=== PATIENT | female | born 1955 | race African-American/Black ===

== ENCOUNTER 2020-01-04 13:49 | Inpatient (IN) | payer MEDICARE, SELFPAY ==
[2020-01-04] VITALS (9 sets, daily range): BP systolic 137–168; BP diastolic 89–101; PULSE 67–90; RESP 11–20; TEMP 36.1–36.4; O2SAT 96–100; BMI 27.6
--- NOTE | ~2020-01-04 | XR_ITS ---
XR chest 1V portable DATE: 01/04/2020 14:22 INDICATION: Chest pain TECHNIQUE: Portable upright AP chest on 01/14/2020 at 1419 hours COMPARISON: 08/09/2017 PA and lateral chest FINDINGS: Normal heart size. There is aortic calcification and mild tortuosity. No hilar or mediastin al enlargement. No pulmonary infiltrate or consolidation, pleural effusion or pulmonary vascular congestion or pneumo thorax. IMPRESSION: No active cardiopulmonary disease Aortic atherosclerosis Reviewed, dictated and finalized at location A.
--- NOTE | ~2020-01-04 | US_ITS ---
US right upper quadrant INDICATION: Abdominal pain PROCEDURE: Realtime right upper abdominal ultrasound. COMPARISON: Ultrasound dated 06/28/2011 FINDINGS: The pancreas is normal without focal mass or pancreatic ductal dilation. Liver echotexture is increased, consistent with fatty infiltration. There is hepatomegaly. There is normal directiona l flow in the portal vein. The gallbladder is normal without stones, gallbladder wall thickening or pericholecystic fluid. Comm on bile duct measures 4.6 mm. No sonographic Cross's sign. IMPRESSION: 1: Fatty infiltration of the liver with hepatomegaly. Reviewed, dictated and finalized at location A.
[2020-01-04 14:00] LABS: Glucose Point of Care 376 (65-105)
[2020-01-04 14:42] LABS: Basophils Percent Auto 0.3 % (0.2-1.2); Eosinophils Percent Auto 0.2 % (0-4.4); Hemoglobin 15.2 g/dL (12.0-15.0); Immature Granulocyte Absolute 0.04 K/mm3 (0.00-0.031); Immature Granulocyte Percent A 0.4 % (0-0.5); Lymphocytes Absolute Auto 0.96 K/mm3 (0.9-3.2); Lymphocytes Percent Auto 10.6 % (18.3-44.2); Mean Corpuscular HGB Conc 31.7 g/dl (32-36); Mean Corpuscular Hemoglobin 26.3 pg (26-34); Mean Platelet Volume 11.5 fl (7.4-10.4); Monocytes Absolute Auto 0.3 K/mm3 (0.1-0.6); Monocytes Percent Auto 3.8 % (2.6-8.5); Neutrophils Absolute Auto 7.7 K/mm3 (1.3-6.7); Neutrophils Percent Auto 84.7 % (45.5-73.1); Platelet Count Result 189 k/mm3 (150-375); Red Blood Count 5.78 M/mm3 (4.2-5.4); White Blood Count 9.1 K/mm3 (4.5-10.0)
[2020-01-04 14:54] LABS: Alanine Aminotransferase 133 U/L (4-35); Albumin Level 4.2 g/dL (3.5-5.1); Alkaline Phosphatase 132 U/L (38-126); Aspartate Amino Transferase 158 U/L (14-36); Blood Urea Nitrogen 13 mg/dL (7-17); Calcium 8.9 mg/dL (8.4-10.2); Carbon Dioxide 26 mmol/L (22-30); Chloride 99 mmol/L (98-107); Estimated CRCL calculation 67 ml/min; Estimated Glomerular Filt Rate > 60; Glucose 374 mg/dL (65-105); Potassium 3.6 mmol/L (3.4-5.0); Sodium 137 mmol/L (137-145)
[2020-01-04 14:55] LABS: INR 0.9; Partial Thromboplastin Time 24.8 SECONDS (22.3-36.8); Prothrombin Time 12.3 Seconds (11.1-14.7)
[2020-01-04 14:58] LABS: D Dimer 0.45 ug/mL (<0.48)
[2020-01-04] MEDS: SODIUM CHLORIDE 0.9% IV 1,000 ML 999 ML IV CONT ×2 (15:04→15:28)
[2020-01-04 15:05] LABS: Troponin I < 0.012 ng/mL (0.000-0.034)
[2020-01-04 15:05] LABS: Add Urine Microscopic? YES; Appearance Urine Clear (Clear); Bacteria Urine Trace /hpf; Bilirubin Urine Negative (Negative); Blood Urine Negative (Negative); Color Urine Colorless (Yellow); Glucose Urine UA 3+ mg/dL (Negative); Ketones Urine 1+ mg/dL (Negative); Leukocyte Esterase Ur Negative LEU/UL (Negative); Nitrate Urine Negative (Negative); Protein Urine 1+ mg/dL (Negative); RBC Urine 0-2 /hpf (0-2); Specific Grav Ur 1.012 (1.001-1.035); Squamous Epithelial Cell Urine Occasional /hpf (Few); Urobilinogen Urine Negative mg/dL (<2.0); WBC Urine 0-3 /hpf
[2020-01-04 15:17] LABS: Amphetamine Screen Urine Negative (Negative); Barbiturate Screen Urine Negative (Negative); Benzodiazepines Screen Urine Negative (Negative); Cannabinoid Screen Urine Negative (Negative); Cocaine Screen Urine Negative (Negative); Methadone Screen Urine Negative (Negative); Opiate Screen Urine Negative (Negative); Phencyclidine Screen Urine Negative (Negative)
[2020-01-04] MEDS: FAMOTIDINE 20 MG/2 ML VIAL IV PUSH (15:27)
[2020-01-04] MEDS: INSULIN HUMAN REGULAR (*BKC) 100 UNITS/ML 9 UNITS SUB-Q (15:27)
[2020-01-04] MEDS: ONDANSETRON INJ 4 MG/2 ML VIAL IV PUSH (15:28)
--- NOTE | 2020-01-04 15:40 | ED.ARRPALP ---
HPI - Arrhythmia/Palpitations General Chief Complaint: Arrhythmia/Palpitations <RODRIGO Panchal Last Filed: 01/04/20 16:43> Stated Complaint: SVT, resolved <RODRIGO Panchal Last Filed: 01/04/20 16:43> Time Seen by Provider: 01/04/20 14:08 <RODRIGO Pnachal Last Filed: 01/04/20 16:43> Source: patient <RODRIGO Panchal Last Filed: 01/04/20 16:43> Mode of arrival: ambulatory <RODRIGO Panchal Last Filed: 01/04/20 16:43> Limitations: no limitations <RODRIGO Panchal Filed: 01/04/20 16:43> History of Present Illness HPI narrative: Patient is a 64-year-old female who presents to emergency department for evaluation of mid chest discomfort with feeling diaphoretic and sweats with nausea and vomiting that occurred this morning EMS was called out patient was found to be in SVT was given 2 doses of adenosine with conversion. On arrival to emergency department patient had aspirin noting only mild discomfort in the mid chest. Patient notes she continues to have some nausea. Patient notes that she has not had a similar occurrence in the past patient notes in the recent past she has felt fine denying any illness or other complaints <RODRIGO Panchal Last Filed: 01/04/20 16:43> Related Data Home Medications: Home Medications Medication Instructions Recorded Confirmed atenolol 25 mg PO DAILY 01/04/20 01/04/20 atorvastatin 40 mg PO HS 01/04/20 01/04/20 lisinopril-hydrochlorothiazide 1 tablet PO DAILY 01/04/20 01/04/20 lorazepam [Ativan] 0.5 mg PO TID PRN 01/04/20 01/04/20 metformin 1,000 mg PO DAILY 01/04/20 01/04/20 omeprazole 40 mg PO DAILY 01/04/20 01/04/20 pioglitazone [Actos] 15 mg PO DAILY 01/04/20 01/04/20 <RODRIGO Panchal Last Filed: 01/04/20 16:43> Allergies/Adverse Reactions: Allergies Allergy/AdvReac Type Severity Reaction Status Date / Time No Known Allergies Allergy Unknown Unverified 01/04/20 14:00 <Seng Tobin PA-C - Last Filed: 01/04/20 16:43> Review of Systems Review of Systems: All systems reviewed & are unremarkable except as noted in HPI and below <Seng Tobin PA-C - Last Filed: 01/04/20 16:43> PMFSH Past Medical History Medical History: Medical History (Updated 01/04/20 @ 16:43 by Seng Tobin PA-C) Diabetes mellitus Hyperlipidemia Hypertension Obesity <Seng Tobin PA-C - Last Filed: 01/04/20 16:43> Surgical History Surgical History: Surgical History H/O cardiac catheterization <Seng Tobin PA-C - Last Filed: 01/04/20 16:43> Family History Family History: Family History (Updated 01/04/20 @ 18:36 by Dominga Figueroa RN) Father Acute myocardial infarction Cerebrovascular accident Hypertension Mother Kidney disease Diabetes mellitus <Seng Tobin PA-C - Last Filed: 01/04/20 16:43> Social History Social History: Social History (Updated 01/04/20 @ 15:42 by Seng Tobin PA-C) Smoking packs per day: 0.25 Smoking cigarettes per day: 5.0 Years smoked: 30 Smoking pack-years: 7.50 Smoking status: Former smoker Tobacco type: e-cigarettes/vaping Second hand tobacco smoke exposure: Yes Alcohol intake: never Substance use: never Gender identity (if verbalized by the patient): Female Spiritual care concerns: No <Seng Tobin PA-C - Last Filed: 01/04/20 16:43> Exam Narrative: Exam Narrative: GENERAL: Well-appearing, well-nourished, and in no acute distress. HEAD: Normocephalic, atraumatic. EYES: PERRLA and EOMI. ENT: Nares clear, no rhinorrhea or epistaxis. Mucous membranes moist. Oropharynx without tonsillar hypertrophy exudate or other lesions. NECK: Supple. No adenopathy or masses. CHEST: Clear to auscultation. No respiratory distress. No wheezes rales or rhonchi HEART: Regular rate and rhythm. No murmur heard. No
[2020-01-04 17:54] LABS: Troponin I 0.095 ng/mL (0.000-0.034)
--- NOTE | 2020-01-04 18:07 | ADMGEN ---
This patient, Zoila Almaraz, was admitted to IMU Room 205-01 on 01-04-2020 at 1755. Patient/family oriented to hospital policies and general routines including ID bracelet, bed and alarms, visiting hours, pain management, procedures, bathroom and other care routines, personal items, smoking policy, room service/diet, and visiting hours. Valuables list has been completed. Information on how to activate the Rapid Response Team has been discussed. Patient/Family are encouraged to report perceived risks to care and to ask questions if they do not understand what they are told or what they should do.
[2020-01-04 18:12] LABS: Glucose Point of Care 196 (65-105)
[2020-01-04] MEDS: LACTATED RINGERS 1,000 ML 125 ML IV CONT (18:38)
--- NOTE | 2020-01-04 20:17 | PM.IMHP ---
H&P: HPI History of Present Illness Chief complaint: SVT,CHEST PIN,ABDOMINAL PAIN Narrative: Zoila Almaraz is a 64 year old female who states that she has had a myocardial infarction in the past but has not had any cardiac stents. The patient stated that she has been working double shifts and [facility] all month long. She is only getting 3-4 hours of sleep a day and not eating right. She states that she has been taking her medication as prescribed. She states that she is very stressed out recently. 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 She stated that she has paroxysmal AFib in the past but is not on any anticoagulation. She stated she has had 2 stress tests in the past and they were negative. She said she has had 2 cardiac catheterization and those were negative as well. She does not recall when she had her last echo. The patient stated that she has not had SVT in the past. She said she has had some chest pain at other times but is resolved on his own. Today she said that she woke up and was having some chest pain palpitations. She said she was in so much pain that she could not talk and felt like she could hardly breathe. She was very diaphoretic. She said her pain was midsternal and did not radiate down her arms or up into her neck. Patient received 2 doses of adenosine in the emergency room. A and she converted to sinus rhythm. Patient was also given lactated Ringer's. Zofran for the nausea. She is also given Tylenol. She is currently eating and is pain-free. Her 1st troponin was noted to be 0.012. Second troponin was noted to be 0.095. To have a fatty infiltration of the liver with hepatomegaly. Chest x-ray read as no acute cardiopulmonary disease. Aortic atherosclerosis. Telemetry is now showing a sinus rhythm with PVCs. Blood sugar was initially 376 and was given insulin in the emergency room. Her blood sugars now down to 196. Date of service 01/04/2020 3rd troponin 0.174. Cardiology was consulted in the emergency room. Review of Systems Review of Systems: All systems reviewed & are unremarkable except as noted in HPI and below Constitutional: Constitutional: Reports as per HPI and Reports no additional constitutional complaints Eyes: Eyes: Reports as per HPI and Reports no additional eye complaints ENT: Reports system reviewed and no additional complaints, except as documented and Reports Normal hearing present Cardiovascular: Cardiovascular: Reports no additional cardiovascular complaints Respiratory: Respiratory: Reports no additional respiratory complaints and Reports no additional respiratory complaints Gastrointestinal: Gastrointestinal: Reports as per HPI and Reports no additional gastrointestinal complaints Musculoskeletal: Musculoskeletal: Reports no additional musculoskeletal complaints Integumentary/Breasts: Skin/Breast: Reports system reviewed and no additional complaints, except as docu and Reports as per HPI Neurologic: Reports system reviewed and no additional complaints, except as documented, Reports as per HPI and Reports Normal hearing present Psychiatric: Psychiatric: Reports no additional psychiatric complaints and Reports as per HPI Endocrine: Endocrine: Reports no additional endocrine complaints Hematologic/Lymphatic: Hematologic/Lymphatic: Reports no additional hematologic/lymphatic complaints Allergic/Immunologic: Allergic/Immunologic: Reports no additional allergic/immunologic complaints [facility] Past Medical History Medical History (Updated 01/04/20 @ 20:43 by Kassidy Torres NP) Anxiety Atrial fibrillation 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
[2020-01-04 20:30] LABS: Troponin I 0.174 ng/mL (0.000-0.034)
[2020-01-04] MEDS: ATORVASTATIN 40 MG TABLET PO (21:10)
[2020-01-04] MEDS: LORAZEPAM 0.5 MG TABLET PO (21:20)
[2020-01-04 23:22] LABS: Amphetamine Screen Urine Negative (Negative); Barbiturate Screen Urine Negative (Negative); Benzodiazepines Screen Urine Negative (Negative); Cannabinoid Screen Urine Negative (Negative); Cocaine Screen Urine Negative (Negative); Methadone Screen Urine Negative (Negative); Opiate Screen Urine Negative (Negative); Phencyclidine Screen Urine Negative (Negative)
[2020-01-05] VITALS (17 sets, daily range): BP systolic 129–180; BP diastolic 73–103; PULSE 63–92; RESP 16–20; TEMP 35.7–36.6; O2SAT 98–100
[2020-01-05 00:09] LABS: Glucose Point of Care 319 (65-105)
[2020-01-05 05:33] LABS: Basophils Percent Auto 0.4 % (0.2-1.2); Eosinophils Percent Auto 0.6 % (0-4.4); Hemoglobin 13.4 g/dL (12.0-15.0); Immature Granulocyte Absolute 0.04 K/mm3 (0.00-0.031); Immature Granulocyte Percent A 0.6 % (0-0.5); Lymphocytes Absolute Auto 2.05 K/mm3 (0.9-3.2); Lymphocytes Percent Auto 29.6 % (18.3-44.2); Mean Corpuscular HGB Conc 31.9 g/dl (32-36); Mean Corpuscular Hemoglobin 26.5 pg (26-34); Mean Platelet Volume 11.4 fl (7.4-10.4); Monocytes Absolute Auto 0.4 K/mm3 (0.1-0.6); Monocytes Percent Auto 6.2 % (2.6-8.5); Neutrophils Absolute Auto 4.3 K/mm3 (1.3-6.7); Neutrophils Percent Auto 62.6 % (45.5-73.1); Platelet Count Result 175 k/mm3 (150-375); Red Blood Count 5.06 M/mm3 (4.2-5.4); Red Cell Distribution Width 14.2 % (11.5-14.5); White Blood Count 6.9 K/mm3 (4.5-10.0)
[2020-01-05 05:40] LABS: Alanine Aminotransferase 100 U/L (4-35); Albumin Level 3.7 g/dL (3.5-5.1); Alkaline Phosphatase 101 U/L (38-126); Aspartate Amino Transferase 76 U/L (14-36); Bilirubin,Total 0.5 mg/dL (0.2-1.3); Blood Urea Nitrogen 9 mg/dL (7-17); Calcium 8.7 mg/dL (8.4-10.2); Carbon Dioxide 30 mmol/L (22-30); Chloride 103 mmol/L (98-107); Estimated CRCL calculation 87 ml/min; Estimated Glomerular Filt Rate > 60; Glucose 251 mg/dL (65-105); Lipase 356 U/L (23-300); Potassium 3.6 mmol/L (3.4-5.0); Sodium 137 mmol/L (137-145)
[2020-01-05 05:53] LABS: Hemoglobin A1C 12.6 % (<5.7)
[2020-01-05 06:08] LABS: Troponin I 0.086 ng/mL (0.000-0.034)
[2020-01-05] MEDS: INSULIN ASPART (*BKC) 100 UNITS/ML SUB-Q ×3 (08:15→17:17)
[2020-01-05] MEDS: atenoloL 25 MG TABLET PO ×2 (08:16→13:09)
[2020-01-05] MEDS: ENOXAPARIN 40 MG/0.4 ML SYRINGE SUB-Q (08:16)
[2020-01-05] MEDS: PANTOPRAZOLE 40 MG TABLET PO (08:17)
[2020-01-05] MEDS: lisinopriL 10 MG TABLET PO (08:17)
[2020-01-05] MEDS: PIOGLITAZONE HCL 15 MG TAB PO (08:17)
[2020-01-05] MEDS: FAMOTIDINE 20 MG/2 ML VIAL IV PUSH ×2 (08:17→20:44)
[2020-01-05] MEDS: hydroCHLOROthiazide 12.5 MG CAPSULE PO (08:17)
[2020-01-05] MEDS: GUAIFENESIN/DEXTROMETHORPHAN 10 ML UDC 5 ML PO ×3 (08:21→22:44)
[2020-01-05 08:25] LABS: Glucose Point of Care 245 (65-105)
--- NOTE | 2020-01-05 11:51 | WPDCN ---
Assessment and Plan Assessment and plan (1) Supraventricular tachycardia: Code(s): I47.1 - Supraventricular tachycardia Status: Acute Assessment and Plan: Patient admitted with SVT rate 190, presyncope and chest pain. She has elevated troponins. No coronary disease by catheterization in 2010, although since she spilled enzymes at that time there was a question of coronary spasm. She has not had any chest pain for years and has good exertional tolerance so I doubt she has significant underlying CAD. 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 Recommend we treat the SVT by increasing her atenolol from 25 mg to 50 mg daily. Check TSH. I think the patient would benefit from further outpatient evaluation with an echocardiogram. She no longer sees her previous moccasin sewer at [facility] and she would prefer to have it done in [place] so I can schedule an outpatient echo in our office in the near future. Probably discharge tomorrow. (2) Chest pain: Code(s): R07.9 - Chest pain, unspecified Status: Acute Assessment and Plan: Secondary to SVT, resolved (3) Elevated troponin: Code(s): R79.89 - Other specified abnormal findings of blood chemistry Status: Acute Assessment and Plan: Secondary to SVT, resolved HPI Data of Consult Date/Time: 01/05/20 11:51 Requesting Physician: Ronald Cruz MD Primary Care Provider: Cecilio MedranoMD Consult Narrative Narrative: Date of service: 01/05/2020 Zoila Almaraz is a 64 year old female kindly referred by Dr. marisel cerna for bite vice and opinion regarding her chest pain, SVT and elevated troponins in consultation. 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 She was finally getting a day off yesterday and slept until about 12 30 when she awoke with profuse diaphoresis and indigestion. The chest discomfort worsened to a deep pressure-like 2 fists pushing down in the substernal area and epigastric area. She felt dizzy and presyncopal. She did not really feel any palpitations. EMS report reviewed, was in SVT rate 192 with a systolic blood pressure of 90 mmHg. She received adenosine 6 mg and 12 mg IV push and converted to sinus rhythm and has subsequently been admitted. Unfortunately I cannot find any rhythm strips in EMR or the chart. Repeat troponin is 0.174. She is feeling a bit tired, has a mild cough, but no other problems today. She states she was tested for COVID recently and the screen was negative. The patient gives a history of having a stroke, seizure and heart attack at the same time 9 or 10 years ago at [facility], manifest as a syncopal episode. Her cardiac catheterization then, she reports, showed no blockages. Dr. Jose Parikh was her moccasin sewer. She was admitted to [facility] in 2010 with chest pain and a troponin of 0.138 with biphasic anterior T-waves. Repeat cardiac catheterization by Dr. Crowe again showed no coronary arteries but she did have a small dyskinetic segment inferiorly so there was concern she may have had coronary spasm. She carries a history of paroxysmal atrial fibrillation when she is stressed or upset with the last episode being 5 years ago. She has not required any hospitalizations or anticoagulation but previously was treated with Cardizem. She followed up with her moccasin sewer for few years and, with stable clinical course and normal stress tests and echos, was eventually discharged. The patient has history of hypertension, diabetes, hyperlipidemia and is a former smoker, now vaping. She reports no problems with any exertional chest pain or shortness of breath. No recent
[2020-01-05 12:42] LABS: Glucose Point of Care 306 (65-105)
[2020-01-05] MEDS: LORAZEPAM 0.5 MG TABLET PO ×2 (13:26→22:44)
--- NOTE | 2020-01-05 13:28 | ECG_ITS ---
Measurements Intervals [place] Rate: 65 P: 42 NM: 150 QRS: 5 QRSD: 90 T: 20 QT: 419 QTc: 437 Interpretive Statements SINUS RHYTHM EARLY PRECORDIAL R/S TRANSITION BASELINE ARTIFACT- I, II, AVR, AVL BORDERLINE ECG Electronically Signed On 01-05-2020 14:52:37 CDT by Jose Spears D.O.
--- NOTE | 2020-01-05 13:56 | PM.IMPN ---
Progress Note: A&P Assessment and Plan (1) Supraventricular tachycardia: Code(s): I47.1 - Supraventricular tachycardia Status: Acute Assessment and Plan: The patient had been given adenosine x2 and is now converted back to sinus rhythm with occasional PVCs. Pt is stable but is very anxious. Continue to monitor on telemtry overnite, discharge tomorrow. (2) Chest pain: Code(s): R07.9 - Chest pain, unspecified Status: Acute Assessment and Plan: Her 3rd troponin was elevated pt had bout of SVT converted to NSR. Chest pain ? MS or mild congestion Try mucinex (3) Diabetes mellitus: Code(s): E11.9 - Type 2 diabetes mellitus without complications Status: Chronic Assessment and Plan: Will check A1c. Sliding scale insulin. Hold her metformin. Continue with her Actos. (4) Anxiety: Code(s): F41.9 - Anxiety disorder, unspecified Status: Chronic Assessment and Plan: Continue with her Ativan. (5) Elevated liver enzymes: Code(s): R74.8 - Abnormal levels of other serum enzymes Status: Acute Assessment and Plan: Could be related to her fatty liver. (6) Hypertension: Code(s): I10 - Essential (primary) hypertension Status: Chronic Assessment and Plan: Continue with her atenolol and lisinopril with hydrochlorothiazide. Subjective Date/time seen: 01/05/20 13:56 Interval history: 64 year old female who states that she has had a myocardial infarction in the past but has not had any cardiac stents. The patient stated that she has been working double shifts and [facility] all month long. Pt has a wet cough was tested negative for COVID. Pt still very anxious. Pt admitted with SVT pt is back to NSR. Reassurance she is better. Pt would like to see email specialist and stay today. Review of Systems Review of Systems: All systems reviewed & are unremarkable except as noted in HPI and below Cardiovascular: Cardiovascular: Reports no additional cardiovascular complaints Respiratory: Respiratory: Reports chest congestion, Reports cough, Reports excessive phlegm production, Denies dyspnea and Denies wheezing Musculoskeletal: Comments: chest wall discomfort Psychiatric: Psychiatric: Reports anxiety Exam Const: General: cooperative and healthy appearing; No in distress Nutritional Appearance: overweight Orientation/consciousness: oriented to person Resp: Effort & Inspection: no respiratory distress Auscultation: no rhonchi and no wheezes Cardio: Rate: regular rate Rhythm: regular rhythm GI: Inspection: normal to inspection GI Palp: No abdominal tenderness, No Guarding due to palpation present (GI) and No Hepatomegaly present Auscultation: normal bowel sounds Neuro: General: oriented to person Psych: Other: Anxiety Objective Data Vital Signs Vital Signs: Vital Signs - 24 hr 01/04/20 15:07 01/04/20 15:31 01/04/20 16:01 Temperature Pulse Rate 90 74 80 Respiratory Rate 15 16 18 Blood Pressure 168/97 H 167/95 H 162/101 H Pulse Oximetry 01/04/20 18:00 01/04/20 18:32 01/04/20 20:00 Temperature 36.3 C L 36.1 C L Pulse Rate 75 74 85 Respiratory Rate 16 18 Blood Pressure 162/96 H 165/92 H Pulse Oximetry 100 100 01/04/20 22:00 01/04/20 23:58 01/05/20 00:00 Temperature 36.3 C L Pulse Rate 67 89 82 Respiratory Rate 20 20 Blood Pressure 155/89 H Pulse Oximetry 99 99 01/05/20 01:53 01/05/20 04:00 01/05/20 06:00 Temperature 36.0 C L Pulse Rate 85 76 77 Respiratory Rate 20 Blood Pressure 157/94 H Pulse Oximetry 99 01/05/20 07:56 01/05/20 08:00 01/05/20 08:16 Temperature 35.9 C L Pulse Rate 77 87 81 Respiratory Rate 16 Blood Pressure 180/103 H Pulse Oximetry 98 01/05/20 09:18 01/05/20 10:00 01/05/20 11:57 Temperature 35.8 C L Pulse Rate 71 67 Respiratory Rate 20 Blood Pressure 152/94 H 129/75 Pulse Oximetry 100 01/05/20
[2020-01-05 17:01] LABS: Glucose Point of Care 293 (65-105)
--- NOTE | 2020-01-05 18:53 | PC.NURSE ---
Transfer received from IMU room 205-1.
[2020-01-05] MEDS: ATORVASTATIN 40 MG TABLET PO (20:44)
[2020-01-05 21:44] LABS: Glucose Point of Care 283 (65-105)
[2020-01-05] MEDS: ONDANSETRON INJ 4 MG/2 ML VIAL IV PUSH (22:44)
[2020-01-06] VITALS: PULSE 77
[2020-01-06 04:00] VITALS: PULSE 76
[2020-01-06 04:57] VITALS: BP 155/81; PULSE 80; RESP 16; TEMP 35.9; O2SAT 100
[2020-01-06] MEDS: GUAIFENESIN/DEXTROMETHORPHAN 10 ML UDC 5 ML PO (04:58)
[2020-01-06 07:43] LABS: Glucose Point of Care 267 (65-105)
[2020-01-06 08:00] VITALS: BP 140/72; PULSE 68; PULSE 81; RESP 18; TEMP 36.8; O2SAT 100
[2020-01-06] MEDS: INSULIN ASPART (*BKC) 100 UNITS/ML SUB-Q ×2 (08:04→11:44)
[2020-01-06 08:08] VITALS: PULSE 76
[2020-01-06] MEDS: PANTOPRAZOLE 40 MG TABLET PO (08:08)
[2020-01-06] MEDS: atenoloL 50 MG TABLET PO (08:08)
[2020-01-06] MEDS: lisinopriL 10 MG TABLET PO (08:08)
[2020-01-06] MEDS: PIOGLITAZONE HCL 15 MG TAB PO (08:08)
[2020-01-06] MEDS: hydroCHLOROthiazide 12.5 MG CAPSULE PO (08:08)
[2020-01-06] MEDS: FAMOTIDINE 20 MG/2 ML VIAL IV PUSH (08:09)
[2020-01-06] MEDS: ENOXAPARIN 40 MG/0.4 ML SYRINGE SUB-Q (08:09)
[2020-01-06 11:52] LABS: Glucose Point of Care 299 (65-105)
[2020-01-06 12:00] VITALS: PULSE 72
--- NOTE | 2020-01-06 12:16 | PM.DS ---
DS: Diagnosis Admitting Diagnosis Admitting Diagnosis: Supraventricular tachycardia Discharge Diagnosis (1) Supraventricular tachycardia: Code(s): I47.1 - Supraventricular tachycardia Status: Acute Assessment and Plan: The patient had been given adenosine x2 and is now converted back to sinus rhythm with occasional PVCs. Pt is stable but is very anxious. Continue to monitor on telemetry. Dischrage today. (2) Chest pain: Code(s): R07.9 - Chest pain, unspecified Status: Acute Assessment and Plan: Her 3rd troponin was elevated pt had bout of SVT converted to NSR. Chest pain ? MS or mild congestion Try robutissin (3) Diabetes mellitus: Code(s): E11.9 - Type 2 diabetes mellitus without complications Status: Chronic Assessment and Plan: Continue back on her home DM medications. Pts HbAIC is 12.6 (4) Anxiety: Code(s): F41.9 - Anxiety disorder, unspecified Status: Chronic Assessment and Plan: Continue ativan PRN for chronic anxiety (5) Elevated liver enzymes: Code(s): R74.8 - Abnormal levels of other serum enzymes Status: Acute Assessment and Plan: Could be related to her fatty liver. (6) Hypertension: Code(s): I10 - Essential (primary) hypertension Status: Chronic Assessment and Plan: Continue with her atenolol and lisinopril with hydrochlorothiazide. DS: Summary Time Spent with Patient Time attestation: Total time spent providing and/or coordinating discharge services:38 minutes on day of discharge Exam Const: General: cooperative, healthy appearing, comfortable, no acute distress, well developed, awake and Physically active; No in distress Nutritional Appearance: average body habitus, well nourished and overweight Orientation/consciousness: oriented to person, oriented to place, oriented to time and patient oriented x3 Limitations: no limitations Chest: Chest palpation & inspection: normal inspection of the chest Resp: Effort & Inspection: normal respiratory effort and no respiratory distress Auscultation: clear to auscultation bilaterally, no rhonchi and no wheezes Percussion: percussion normal Cardio: Palpation: normal PMI Rate: regular rate Rhythm: regular rhythm Heart sounds: S1 normal heart sound present and S2 normal heart sound present Peripheral pulses: Peripheral pulses 2+ throughout Psych: Appearance: grossly normal Mental Status: mental status grossly normal Speech and movement: Normal speech and movement present Affect: normal affect Attitude: cooperative Thought process: Normal thought process present Insight: Fair insight present (Psych) Judgement: Fair judgement present (Psych) Other: Anxiety DS: Data Data Completed and Pending Labs on day of discharge: Labs from last 24 hours 01/06/20 01/06/20 01/06/20 11:42 07:39 05:20 POC Capillary Glucose 299 H 267 H TSH 1.320 01/05/20 01/05/20 01/05/20 19:27 16:38 11:56 POC Capillary Glucose 283 H 293 H 306 H TSH Discharge Plan Discharge Attending physician on discharge: Carla Aguero Consulting providers: Julia Martino Discharging Clinician: Carla Aguero Anticipated Discharge Date/Time: 01/06/20 12:12 Patient Disposition: Home, Self-Care Activity: as tolerated Diet: diabetic Discharge Instructions: ECHO ON DISCHARGE PT CAN START COMING TO [facility] GROUP HERE IN [facility] Patient Instructions: Antibiotic Form Stand Alone Forms: General Discharge Information Follow-up/Referrals: Mitchell,Cecilio Sifuentes MD [Primary Care Provider] - Discharge Medications: New Robitussin Cough-Chest Hola DM 5-100 mg/5 mL liquid 10 ml PO Q4-8H PRN (Reason: cough) Qty: 118 RF: 0 Continued atorvastatin 40 mg Tablet 40 mg PO HS RF: 0 lisinopril-hydrochlorothiazide 10-12.5 mg Tablet 1 tablet PO DAILY RF: 0 metformin 500 mg Tablet Extended Release
== END 2020-01-06 13:08 | disposition home or self-care (01) | DRG 310 ==
LOC: ANHED 16:55 → ANHIMU 17:04 → ANH3MED 01-06 12:16 → ANHIMU 01-09 13:36
PROVIDERS: Emergency Medicine Emergency Medical Services; Internal Medicine Cardiovascular Disease; Nurse Practitioner; Admitting Provider Internal Medicine; Emergency Provider Emergency Medicine; PCP Internal Medicine; Visit Provider Family Medicine
DX: I47.1 Supraventricular tachycardia (principal); E11.9 Type 2 diabetes mellitus without complications; F41.9 Anxiety disorder, unspecified; R74.8 Abnormal levels of other serum enzymes; I10 Essential (primary) hypertension; E78.5 Hyperlipidemia, unspecified; K21.9 Gastro-esophageal reflux disease without esophagitis; F17.290 Nicotine dependence, other tobacco product, uncomplicated; Z86.73 Personal history of transient ischemic attack (TIA), and cerebral infarction without residual deficits; I25.2 Old myocardial infarction; Z90.710 Acquired absence of both cervix and uterus
CPT/HCPCS: 36415; 71045; 76705; 80053; 80307; 81001; 82948; 83036; 83690; 84443; 84484; 85025; 85380; 85610; 85730; 93005; 96361; 96365; 96375; 99285; A9270; J0131; J1650; J1815; J2405; J7030; J7120

== ENCOUNTER 2020-01-10 22:43 | Inpatient (IN) | payer MEDICARE, SELFPAY ==
--- NOTE | ~2020-01-10 | XR_ITS ---
EXAMINATION: XR chest 1V portable DATE: 01/18/2020 05:55 INDICATION: COVID pneumonia TECHNIQUE: frontal view of the chest was obtained. COMPARISON: Chest radiograph dated 01/18/2020 and 06/27/2011 FINDINGS: Chronic elevation of the left hemidiaphragm. Mild patchy airspace opacities in the left mid to lower lung zone with more subtle patchy opacities in the right upper and lower lung zones. No pleural effus ion or pneumothorax. The cardiomediastinal silhouette is normal. IMPRESSION: 1. Subtle patchy bilateral airspace opacities most likely pneumonia. Reviewed, dictated and finalized at location A.
--- NOTE | ~2020-01-10 | CT_ITS ---
EXAMINATION: CTA chest PE protocol DATE: 01/11/2020 04:48 INDICATION: Chest pain. Shortness of breath. TECHNIQUE: Computed tomography angiography (CTA) of the chest was performed with 100 mL Omnipaque-350 intravenous contrast timed to evaluate the pulmonary arteries. Coronal maximum intensity projection 3D-reconstructions were created by the technologist. Automated exposure control and iterative reconst ruction technique were employed. The dose-length product was 214.24 mGy-cm. COMPARISON: Chest single view 01/04/2020, CT abdomen and pelvis 08/09/2017 FINDINGS: There are blebs in right lung apex. There is mild atelectasis bilaterally. There are periph eral groundglass and airspace opacities in left lower lobe. No pleural effusion. The heart size is no rmal. No pericardial effusion. There is no pulmonary embolus. There is mild thoracic spondylosis. IMPRESSION: 1. No pulmonary embolus. 2. Groundglass and airspace opacities in left lower lobe, consistent with pneumonia such as COVID-19 pneumonia. Reviewed, dictated and finalized at location A. IMPRESSION: 1. No pulmonary embolus. 2. Groundglass and airspace opacities in left lower lobe, consistent with pneum onia such as COVID-19 pneumonia.
[2020-01-10 22:46] VITALS: BP 108/68; PULSE 86; RESP 13; TEMP 38.3; O2SAT 100
--- NOTE | 2020-01-10 23:14 | ECG_ITS ---
Measurements Intervals [place] Rate: 84 P: 32 ME: 139 QRS: -6 QRSD: 87 T: 72 QT: 368 QTc: 435 Interpretive Statements SINUS RHYTHM ATRIAL AND VENTRICULAR PREMATURE COMPLEXES NONSPECIFIC ST & T-WAVE ABNORMALITY- ANTERIOR LEADS BASELINE WANDER- I, II, AVR, AVL, AVF, V4-V6 ABNORMAL ECG Electronically Signed On 01-11-2020 7:12:39 CDT by Jose Spears D.O.
[2020-01-11] VITALS (14 sets, daily range): BP systolic 102–119; BP diastolic 65–80; PULSE 62–91; RESP 15–20; TEMP 36.9–38; O2SAT 93–100; BMI 23.1
[2020-01-11] MEDS: MORPHINE SULFATE 4 MG/ML INJ IV PUSH
[2020-01-11 00:30] LABS: Basophils Percent Auto 0.3 % (0.2-1.2); Hemoglobin 14.9 g/dL (12.0-15.0); Immature Granulocyte Absolute 0.02 K/mm3 (0.00-0.031); Immature Granulocyte Percent A 0.3 % (0-0.5); Lymphocytes Absolute Auto 1.38 K/mm3 (0.9-3.2); Lymphocytes Percent Auto 21.7 % (18.3-44.2); Mean Corpuscular HGB Conc 33.1 g/dl (32-36); Mean Corpuscular Hemoglobin 26.7 pg (26-34); Mean Corpuscular Volume 80.6 fl (80-100); Mean Platelet Volume 11.5 fl (7.4-10.4); Monocytes Absolute Auto 0.4 K/mm3 (0.1-0.6); Monocytes Percent Auto 5.8 % (2.6-8.5); Neutrophils Absolute Auto 4.6 K/mm3 (1.3-6.7); Neutrophils Percent Auto 71.9 % (45.5-73.1); Platelet Count Result 151 k/mm3 (150-375); Red Blood Count 5.58 M/mm3 (4.2-5.4); Red Cell Distribution Width 13.7 % (11.5-14.5); White Blood Count 6.4 K/mm3 (4.5-10.0)
[2020-01-11 00:33] LABS: Lactic Acid Reflex 1.3 mmol/L (0.7-2.1)
--- NOTE | 2020-01-11 00:37 | ED.ARRPALP ---
HPI - Arrhythmia/Palpitations General Chief Complaint: Arrhythmia/Palpitations Stated Complaint: cp, sob Time Seen by Provider: 01/10/20 23:07 History of Present Illness HPI narrative: Patient is a 64-year-old female who presents the ER with chest pain or shortness of breath. Patient called EMS because she is feeling very short of breath at home. She had taken her pulse oximeter and she reported it was in the 80s and her heart rate was in the 170s. EMS arrived patient was in SVT. They converted her with 1 dose of adenosine. Patient was recently hospitalized for SVT. She had her in atenolol increased from 25 mg to 50 mg daily. She has been compliant with medication. Had not been having other issues until today. Patient still reports chest pain which is a pressure in the center of her chest. It is 09/07. Chart review shows patient has had a cardiac catheterization in 2010 that showed clean coronaries. Patient is very anxious and tearful at this time. She has been tested for COVID which was negative. She works in [place]. Of note, patient was found to be febrile upon arrival here. Denies any new runny nose/sore throat but she has had mild cough. Related Data Home Medications Medication Instructions Recorded Confirmed atorvastatin 40 mg PO HS 01/04/20 01/04/20 lisinopril-hydrochlorothiazide 1 tablet PO DAILY 01/04/20 01/04/20 lorazepam [Ativan] 0.5 mg PO TID PRN 01/04/20 01/04/20 omeprazole 40 mg PO DAILY 01/04/20 01/04/20 pioglitazone [Actos] 15 mg PO DAILY 01/04/20 01/04/20 sitagliptin [Januvia] 25 mg PO DAILY 01/10/20 Allergies Allergy/AdvReac Type Severity Reaction Status Date / Time No Known Allergies Allergy Unknown Verified 01/10/20 22:55 Review of Systems Review of Systems: All systems reviewed & are unremarkable except as noted in HPI and below Constitutional: Constitutional: Denies chills, Denies fever(s) and Denies weakness ENT: Denies nasal congestion and Denies sore throat Cardiovascular: Cardiovascular: Reports chest pain and Denies radiating jaw, neck or arm pain Respiratory: Respiratory: Reports cough, Reports dyspnea and Denies wheezing Gastrointestinal: Gastrointestinal: Denies abdominal pain, Denies nausea and Denies vomiting Psychiatric: Psychiatric: Reports anxiety PMFSH Past Medical History Medical History (Updated 01/11/20 @ 05:37 by Duke Garcia MD) Anxiety Atrial fibrillation Paroxysmal, last episode about 5 years ago Benign tumor of uterine fundus CVA (cerebral vascular accident) Without residual. Reports stroke, heart attack and seizure all together about 9 or 10 years ago. Diabetes mellitus GERD with esophagitis Hyperlipidemia Hypertension Myocardial infarction Stroke, heart attack and seizure approximately 2009, negative cardiac catheterization. Chest pain with troponin of 0.138 in 2010, cardiac catheterization at [facility] showed no CAD but inferior hypokinesis. Possible spasm? Obesity Seizure disorder No longer on Keppra approximately 2009 Surgical History Surgical History (Updated 01/04/20 @ 20:33 by Kassidy Torres NP) H/O cardiac catheterization H/O: hysterectomy Due to fibroid tumor Social History Social History (Updated 01/05/20 @ 12:12 by Julia Martino MD) Social History: The patient currently uses the vapor nicotine device. The patient stated that she uses the lowest dose of nicotine. She denies using any energy drinks. After she used sports drinks and she said that she uses Gatorade at times. She denies using any caffeine or any other stimulants. The patient denies any alcohol or drug use. She is lives with her . He has several children but she does not have any biological children. She desires to have her is her durable power corporate attorney. And she desires to be a full code. 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
[2020-01-11 00:38] LABS: Alanine Aminotransferase 78 U/L (4-35); Albumin Level 3.8 g/dL (3.5-5.1); Alkaline Phosphatase 111 U/L (38-126); Aspartate Amino Transferase 51 U/L (14-36); Bilirubin,Total 0.4 mg/dL (0.2-1.3); Blood Urea Nitrogen 17 mg/dL (7-17); Calcium 8.2 mg/dL (8.4-10.2); Carbon Dioxide 25 mmol/L (22-30); Chloride 94 mmol/L (98-107); Estimated Glomerular Filt Rate > 60; Glucose 283 mg/dL (65-105); Sodium 129 mmol/L (137-145)
[2020-01-11 00:41] LABS: Prothrombin Time 12.5 Seconds (11.1-14.7)
[2020-01-11 00:42] LABS: Partial Thromboplastin Time 25.8 SECONDS (22.3-36.8)
[2020-01-11 00:45] LABS: NT Pro B Type Natriuretic Pept 52 PG/ML (5-100); Troponin I < 0.012 ng/mL (0.000-0.034)
[2020-01-11 00:51] LABS: Potassium 3.6 mmol/L (3.4-5.0)
--- NOTE | 2020-01-11 04:40 | PC.NURSE ---
See down time charting for patient MAR and vitals
[2020-01-11 04:58] LABS: Troponin I 0.014 ng/mL (0.000-0.034)
--- NOTE | 2020-01-11 06:53 | ADMIMU ---
This patient, Zoila Almaraz, was admitted to IMU status, and placed in Intensive Care Unit-7. Patient/family oriented to hospital policies and general routines including ID bracelet, bed and alarms, visiting hours, pain management, procedures, bathroom and other care routines, personal items, smoking policy, room service/diet, and visiting hours. Valuables list has been completed. Information on how to activate the Rapid Response Team has been discussed. Patient/Family are encouraged to report perceived risks to care and to ask questions if they do not understand what they are told or what they should do.
--- NOTE | 2020-01-11 09:22 | PM.CNCAR ---
Assessment and Plan Additional Plan 64-year-old female with: Symptomatic recurrent SVT once again terminated with adenosine in the field. Patient reports a history of pea AFib as well which has been followed by her physicians at [facility] and has not been much of a problem recently. It would be nice if the rhythm strips of this SVT that was terminated in the field were recorded and placed on the chart for my review but they are not available. I will presume that the diagnosis is accurate as it was seen in the field and also seen by my partner Dr. Martino 5 days ago during the most recent consultation regarding the same arrhythmia. At this point I would recommend attempting to shift her from a beta-lisa to diltiazem for more effective suppression of her AV node conduction which commonly is more effective at treating SVT than beta-lisa therapy. 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 I told her that if she does not have a good response to diltiazem that her established physicians out at [facility] would be able to involve there are electrophysiology consultants and consider ablating this arrhythmia. Workup of her febrile illness per the primary team Tito Ortiz MD [facility] History of Present Illness History of Present Illness Consult date/time: Date of service: 01/11/20 09:22 Reason For Visit: svt, Pneumonia, Covid PUI Narrative: This is a 64-year-old black female with a history of supraventricular tachycardia and because of the recurrent a rate arrhythmia/SVT I am seeing her at the request of the hospitalist. The patient is unknown to me but we recently saw my partner, Dr. Martino 5 days ago in the hospital for the same arrhythmia. Apparently she has a history of infrequent episodes of paroxysmal atrial fibrillation for which she follows with physicians out at [facility] for a number of years. Her primary care is out there. The patient had an episode of abrupt tachycardia palpitations last week and she came into the hospital with SVT and was found to otherwise be hemodynamically stable. She with her arrhythmia was terminated with adenosine and she was seen by Dr. Martino in consultation. This lady has had workups in the past which showing no evidence of structural or ischemic heart disease. I 2 occasions she has been to the cardiac catheterization lab showing no evidence of ischemic heart disease. She was discharged on a 10 Urias having increased the dosage from 25-50 mg. The patient last evening had a recurrence of the abrupt onset of tachycardia/palpitations and was once again found to be in SVT when EMS was called to her home. They established IV access and again treated her with adenosine. According to the patient the 1st dose of 6 mg was ineffective and after the 12 mg dose she converted back to sinus. She was seen in the emergency room and otherwise found to be stable but interestingly she was febrile as well she did not realize that she had a fever did not feel any chills or rigors. She has not had a cough for any other respiratory symptoms. Because of the fever however she is now being ruled out for quach virus and is ICU room 7. She is currently in sinus rhythm and is hemodynamically stable. Her medical regimen at home included the 50 mg dosage of atenolol described above as well as lisinopril with hydrochlorothiazide at an unknown dosage according to the med list. Review of Systems Constitutional: Constitutional: Reports no additional constitutional complaints Eyes: Eyes: Reports no additional eye complaints ENT: Reports system reviewed and no additional complaints, except as documented Cardiovascular: Cardiovascular: Reports as per HPI, Reports chest pain and Reports palpitations Respiratory: Respiratory: Reports as per HPI and Reports dyspnea Gastrointestinal: Gastrointestinal: Reports no additional gastrointestinal complaints G
--- NOTE | 2020-01-11 09:59 | PM.IMHP ---
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 She uses protective gear including mass and eye Scott and gloves. She has not traveled anywhere nor has she been around anyone outside of the [employer] who is ill. She has shows during in place at home and going work. Two weeks ago she was routinely tested for SARS-CoV-2 and was negative. On 01/09 she had a slight cough but no sore throat or nasal congestion. Slight shortness of breath that worsened. She could not find a pulse oximeter initially when she did batteries were . She replace the batteries and found that her pulse was 180 and her oxygen saturations were in the upper 80s. Because of this she came to the emergency room. Upon arrival to the emergency room she had a fever as well. She was hospitalized earlier this month with PSVT. She was treated with adenosine IV. Atenolol was increased from 25-50 mg daily. She has been taking her medications regularly. In 2010 she had a coronary angiogram that showed no coronary disease and normal left ventricular function. Review of Systems Review of Systems: All systems reviewed & are unremarkable except as noted in HPI and below PMFSH Past Medical History Medical History Anxiety Atrial fibrillation Paroxysmal, last episode about 5 years ago Benign tumor of uterine fundus CVA (cerebral vascular accident) Without residual. Reports stroke, heart attack and seizure all together about 9 or 10 years ago. Diabetes mellitus GERD with esophagitis Hyperlipidemia Hypertension Myocardial infarction Stroke, heart attack and seizure approximately 2009, negative cardiac catheterization. Chest pain with troponin of 0.138 in 2010, cardiac catheterization at [facility] showed no CAD but inferior hypokinesis. Possible spasm? Obesity Seizure disorder No longer on Keppra approximately 2009 Surgical History Surgical History H/O cardiac catheterization H/O: hysterectomy Due to fibroid tumor Family History Family History Father Acute myocardial infarction Cerebrovascular accident Hypertension Mother Kidney disease Diabetes mellitus Social History Social History (Updated 01/11/20 @ 10:07 by James Gonzalez MD) Social History: She is lives with her . He has several children but she does not have any biological children. Her is her durable power personal injury attorney. 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 Smoking packs per day: 0.25 Smoking cigarettes per day: 5.0 Years smoked: 30 Smoking pack-years: 7.50 Smoking status: Former smoker Tobacco type: e-cigarettes/vaping Second hand tobacco smoke exposure: Yes Alcohol intake: former Substance use: never Gender identity (if verbalized by the patient): Female Spiritual care concerns: No Meds Home Medications and Allergies Home Medications Medication Instructions Recorded Confirmed Type atorvastatin 40 mg PO HS 01/04/20 01/11/20 History lisinopril-hydrochlorothiazide 1 tablet PO DAILY 01/04/20 01/11/20 History lorazepam [Ativan] 0.5 mg PO TID PRN 01/04/20 01/11/20 History omeprazole 40 mg PO DAILY 01/04/20 01/11/20 History pioglitazone [Actos] 15 mg PO DAILY 01/04/20 01/11/20 History atenolol 50 mg PO DAILY 30 Days #60 tablet 01/06/20 01/11/20 Rx dextromethorphan-guaifenesin 10 ml PO Q4-8H PRN #118 ml 01/06/20 01/11/20 Rx [Robitussin Cough-Chest Hola DM] sitagliptin [Januvia] 100 mg PO DAILY 01/10/20 01/11/20 History Allergies Allergy/AdvReac Type Severity Reaction Status Date / Time No Known Al
[2020-01-11] MEDS: PIOGLITAZONE HCL 15 MG TAB PO (11:34)
[2020-01-11] MEDS: PANTOPRAZOLE 40 MG TABLET PO ×2 (11:34→20:42)
[2020-01-11] MEDS: SODIUM CHLORIDE 0.9% IV 1,000 ML 125 ML IV CONT ×2 (11:35→20:42)
[2020-01-11] MEDS: INSULIN ASPART (*BKC) 100 UNITS/ML SUB-Q ×2 (11:49→16:42)
[2020-01-11 12:34] LABS: Hematocrit 43.9 % (37.0-47.0); Hemoglobin 14.1 g/dL (12.0-15.0); Mean Corpuscular HGB Conc 32.1 g/dl (32-36); Mean Corpuscular Hemoglobin 26.3 pg (26-34); Mean Corpuscular Volume 81.8 fl (80-100); Mean Platelet Volume 11.6 fl (7.4-10.4); Platelet Count Result 148 k/mm3 (150-375); Red Blood Count 5.37 M/mm3 (4.2-5.4); Red Cell Distribution Width 13.8 % (11.5-14.5); White Blood Count 4.2 K/mm3 (4.5-10.0)
[2020-01-11 12:47] LABS: D Dimer 0.33 ug/mL (<0.48)
[2020-01-11 12:59] LABS: SARS-CoV-2 RNA PCR Positive
[2020-01-11 13:05] LABS: Troponin I < 0.012 ng/mL (0.000-0.034)
[2020-01-11 13:05] LABS: Creatinine Urine 39.2 mg/dL
[2020-01-11 13:34] LABS: Glucose Point of Care 228 (65-105)
[2020-01-11 14:12] LABS: Alanine Aminotransferase 67 U/L (4-35); Albumin Level 3.6 g/dL (3.5-5.1); Alkaline Phosphatase 109 U/L (38-126); Aspartate Amino Transferase 47 U/L (14-36); Bilirubin,Total 0.5 mg/dL (0.2-1.3); Blood Urea Nitrogen 9 mg/dL (7-17); CRP 1.8 mg/dL (<1.0); Calcium 8.2 mg/dL (8.4-10.2); Carbon Dioxide 26 mmol/L (22-30); Chloride 98 mmol/L (98-107); Estimated CRCL calculation 88 ml/min; Estimated Glomerular Filt Rate > 60; Glucose 229 mg/dL (65-105); Potassium 3.5 mmol/L (3.4-5.0); Sodium 131 mmol/L (137-145)
[2020-01-11 14:25] LABS: Urea Random Urine 305 MG/DL
[2020-01-11 17:03] LABS: Glucose Point of Care 233 (65-105)
[2020-01-11] MEDS: ATORVASTATIN 40 MG TABLET PO (20:42)
[2020-01-12] VITALS (15 sets, daily range): BP systolic 138–179; BP diastolic 79–92; PULSE 70–85; RESP 10–22; TEMP 37.2–38.3; O2SAT 93–100
[2020-01-12] MEDS: SODIUM CHLORIDE 0.9% IV 1,000 ML 125 ML IV CONT (06:48)
[2020-01-12 07:50] LABS: Alanine Aminotransferase 58 U/L (4-35); Albumin Level 3.2 g/dL (3.5-5.1); Alkaline Phosphatase 97 U/L (38-126); Aspartate Amino Transferase 44 U/L (14-36); Bilirubin,Total 0.3 mg/dL (0.2-1.3); Blood Urea Nitrogen 6 mg/dL (7-17); CRP 1.7 mg/dL (<1.0); Calcium 7.6 mg/dL (8.4-10.2); Carbon Dioxide 23 mmol/L (22-30); Chloride 103 mmol/L (98-107); Estimated CRCL calculation 107 ml/min; Estimated Glomerular Filt Rate > 60; Glucose 211 mg/dL (65-105); Lactate Dehydrogenase 594 U/L (313-618); Potassium 3.3 mmol/L (3.4-5.0); Sodium 133 mmol/L (137-145)
--- NOTE | 2020-01-12 09:16 | PM.PNCARD ---
Progress Note: A&P Assessment and Plan (1) Supraventricular tachycardia: Code(s): I47.1 - Supraventricular tachycardia Status: Acute Assessment and Plan: Agree with diltiazem. Likely better choice than beta-lisa for prevention of SVT. Okay to move off of ICU if need be. (2) Hypertension: Qualifiers: Hypertension type: unspecified Qualified Code(s): I10 - Essential (primary) hypertension Code(s): I10 - Essential (primary) hypertension Status: Chronic Assessment and Plan: Reasonably controlled (3) Hypokalemia: Code(s): E87.6 - Hypokalemia Status: Acute Assessment and Plan: Will replace with 40 mEq p.o. potassium x1 (4) Pneumonia: Qualifiers: Laterality: left Lung location: lower lobe of lung Pneumonia type: due to unspecified organism Qualified Code(s): J18.9 - Pneumonia, unspecified organism Code(s): J18.9 - Pneumonia, unspecified organism Status: Acute Assessment and Plan: COVID positive. Treatment per research hydrologist. Stable at this point Subjective Date/time seen: 01/12/20 09:16 Chief complaint: COVID pneumonia, SVT Date of service 01/12/2020: Follow-up: Remains in sinus rhythm with occasional PVCs overnight. No known complaints of chest pain Review of Systems Constitutional: Constitutional: Reports no additional constitutional complaints Eyes: Eyes: Reports no additional eye complaints ENT: Reports system reviewed and no additional complaints, except as documented Cardiovascular: Cardiovascular: Reports as per HPI, Reports palpitations and Reports dyspnea Respiratory: Respiratory: Reports as per HPI and Reports dyspnea Gastrointestinal: Gastrointestinal: Reports no additional gastrointestinal complaints Genitourinary: Genitourinary: Reports no additional female genitourinary complaints Musculoskeletal: Musculoskeletal: Reports no additional musculoskeletal complaints Integumentary/Breasts: Skin/Breast: Reports system reviewed and no additional complaints, except as docu Neurologic: Reports system reviewed and no additional complaints, except as documented Endocrine: Endocrine: Reports no additional endocrine complaints and Reports palpitations Hematologic/Lymphatic: Hematologic/Lymphatic: Reports no additional hematologic/lymphatic complaints Allergic/Immunologic: Allergic/Immunologic: Reports no additional allergic/immunologic complaints Exam Const: General: comfortable and no acute distress Eyes: Sclera: sclerae normal Neck: Neck: supple and no JVD Resp: Effort & Inspection: normal respiratory effort Cardio: Rate: regular rate Rhythm: regular rhythm Skin: General skin exam: normal color Extrem: General: normal to inspection Objective Data Vital Signs Vital Signs: Vital Signs - 24 hr 01/11/20 09:56 01/11/20 12:00 01/11/20 14:00 Temperature Pulse Rate 62 68 85 Respiratory Rate Blood Pressure Pulse Oximetry 01/11/20 16:00 01/11/20 18:00 01/11/20 20:00 Temperature 38.0 C H Pulse Rate 91 85 77 Respiratory Rate 18 Blood Pressure 119/80 Pulse Oximetry 99 01/11/20 22:00 01/12/20 00:00 01/12/20 02:00 Temperature Pulse Rate 75 76 79 Respiratory Rate 19 Blood Pressure 144/92 H Pulse Oximetry 96 01/12/20 04:00 01/12/20 06:00 Temperature 37.6 C Pulse Rate 70 81 Respiratory Rate 12 Blood Pressure 144/79 H Pulse Oximetry 93 Intake/Output Intake/Output: Intake & Output 01/09/20 01/10/20 01/11/20 01/12/20 23:59 23:59 23:59 23:59 Intake Total 1290 1000 Output Total 1200 600 Balance 90 400 Meds/Results Medications: Active Medications Generic Name Dose Route Start Last Admin Trade Name Freq PRN Reason Stop Dose Admin Acetaminophen 650 mg 01/11/20 04:28 Tylenol Tablet PO Q4H PRN Mild Pain (1-3) or Fever Hydrocodone Bitart/Acetaminophen 1 tab 01/11/20 04:28 Higbee 5-325 Mg PO
[2020-01-12] MEDS: POTASSIUM CHLORIDE 20 MEQ TABLET 40 MEQ PO (09:50)
[2020-01-12] MEDS: PANTOPRAZOLE 40 MG TABLET PO ×2 (09:51→21:22)
[2020-01-12 10:07] LABS: Glucose Point of Care 198 (65-105)
[2020-01-12] MEDS: PIOGLITAZONE HCL 15 MG TAB PO (11:53)
[2020-01-12] MEDS: INSULIN ASPART (*BKC) 100 UNITS/ML SUB-Q (12:01)
[2020-01-12 12:29] LABS: Glucose Point of Care 284 (65-105)
--- NOTE | 2020-01-12 13:58 | P.PNIM_ITS ---
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 * SARS-CoV-2 rt-PCR POSITIVE * Trend inflammatory markers * Aerosol isolation * Ceftriaxone and azithromycin day 3 (2) Supraventricular tachycardia: Code(s): I47.1 - Supraventricular tachycardia Status: Acute Assessment and Plan: * Chronic, intermittent * Failed beta-lisa * Trial of diltiazem * If that fails, consider trial of antiarrhythmic vs ablation (3) Elevated troponin: Code(s): R79.89 - Other specified abnormal findings of blood chemistry Status: Acute Assessment and Plan: * Likely due to PSVT * No ACS (4) Hypertension: Qualifiers: Hypertension type: unspecified Qualified Code(s): I10 - Essential (primary) hypertension Code(s): I10 - Essential (primary) hypertension Status: Chronic Assessment and Plan: * Diltiazem * Hold other antihypertensives (5) Ventral hernia: Qualifiers: Obstruction and gangrene presence: without obstruction or gangrene Qualified Code(s): K43.9 - Ventral hernia without obstruction or gangrene Code(s): K43.9 - Ventral hernia without obstruction or gangrene Status: Acute Assessment and Plan: * Asymptomatic (6) Diabetes mellitus: Qualifiers: Diabetes mellitus type: type 2 Diabetes mellitus termite technician insulin use: without termite technician use Diabetes mellitus complication status: with hyperglycemia Qualified Code(s): E11.65 - Type 2 diabetes mellitus with hyperglycemia Code(s): E11.9 - Type 2 diabetes mellitus without complications Status: Chronic Assessment and Plan: * Continue sitagliptin and rosiglitazone * Supplement with SSI (7) Chest pain: Qualifiers: Chest pain type: unspecified Qualified Code(s): R07.9 - Chest pain, unspecified Code(s): R07.9 - Chest pain, unspecified Status: Acute Assessment and Plan: * Likely due to PSVT, pneumonia * Hx negative coronary angiogram (8) Elevated liver enzymes: Code(s): R74.8 - Abnormal levels of other serum enzymes Status: Acute Assessment and Plan: * Reactive vs hepatic steatosis vs viral hepatitis vs combination * Simlilar levels in past * Heptatitis A, B, C pending (9) Hyponatremia: Code(s): E87.1 - Hypo-osmolality and hyponatremia Status: Acute Assessment and Plan: * Likely due to HCTZ, decreased oral intake, possible SIADH due to pneumonia * 01/10 FEU = 43.2% (not prerenal, so c/w SIADH), IVF d/c'ed * 01/09 Na 129, 01/11 Na 133 * Monitor I/O Subjective Date/time seen: 01/12/20 13:58 Interval history: Admitted 01/09 with SARS-CoV-2 pneumonia 01/11. Tired. Dry cough. Generalized aches. Fatigue. Tolerated diet. No GI or complaints. No abnormal bleeding. No chest pain. Shortness of breath with any activity. Review of Systems Review of Systems: All systems reviewed & are unremarkable except as noted in HPI and below Exam Narrative: Exam Narrative: HEENT: EOMI, PERRL, sclerae nonicteric, pharyngeal mucosa pink and i
--- NOTE | 2020-01-12 13:58 | PM.IMPN ---
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 SARS-CoV-2 rt-PCR POSITIVE Trend inflammatory markers Aerosol isolation Ceftriaxone and azithromycin day 3 (2) Supraventricular tachycardia: Code(s): I47.1 - Supraventricular tachycardia Status: Acute Assessment and Plan: Chronic, intermittent Failed beta-lisa Trial of diltiazem If that fails, consider trial of antiarrhythmic vs ablation (3) Elevated troponin: Code(s): R79.89 - Other specified abnormal findings of blood chemistry Status: Acute Assessment and Plan: Likely due to PSVT No ACS (4) Hypertension: Qualifiers: Hypertension type: unspecified Qualified Code(s): I10 - Essential (primary) hypertension Code(s): I10 - Essential (primary) hypertension Status: Chronic Assessment and Plan: Diltiazem Hold other antihypertensives (5) Ventral hernia: Qualifiers: Obstruction and gangrene presence: without obstruction or gangrene Qualified Code(s): K43.9 - Ventral hernia without obstruction or gangrene Code(s): K43.9 - Ventral hernia without obstruction or gangrene Status: Acute Assessment and Plan: Asymptomatic (6) Diabetes mellitus: Qualifiers: Diabetes mellitus type: type 2 Diabetes mellitus alf insulin use: without ocean transportation intermediary use Diabetes mellitus complication status: with hyperglycemia Qualified Code(s): E11.65 - Type 2 diabetes mellitus with hyperglycemia Code(s): E11.9 - Type 2 diabetes mellitus without complications Status: Chronic Assessment and Plan: Continue sitagliptin and rosiglitazone Supplement with SSI (7) Chest pain: Qualifiers: Chest pain type: unspecified Qualified Code(s): R07.9 - Chest pain, unspecified Code(s): R07.9 - Chest pain, unspecified Status: Acute Assessment and Plan: Likely due to PSVT, pneumonia Hx negative coronary angiogram (8) Elevated liver enzymes: Code(s): R74.8 - Abnormal levels of other serum enzymes Status: Acute Assessment and Plan: Reactive vs hepatic steatosis vs viral hepatitis vs combination Simlilar levels in past Heptatitis A, B, C pending (9) Hyponatremia: Code(s): E87.1 - Hypo-osmolality and hyponatremia Status: Acute Assessment and Plan: Likely due to HCTZ, decreased oral intake, possible SIADH due to pneumonia 01/10 FEU = 43.2% (not prerenal, so c/w SIADH), IVF d/c'ed 01/09 Na 129, 01/11 Na 133 Monitor I/O Subjective Date/time seen: 01/12/20 13:58 Interval history: Admitted 01/09 with SARS-CoV-2 pneumonia 01/11. Tired. Dry cough. Generalized aches. Fatigue. Tolerated diet. No GI or complaints. No abnormal bleeding. No chest pain. Shortness of breath with any activity. Review of Systems Review of Systems: All systems reviewed & are unremarkable except as noted in HPI and below Exam Narrative: Exam Narrative: HEENT: EOMI, PERRL, sclerae nonicteric, pharyngeal mucosa pink and intact NECK: No JVD, adenopathy, or thyromegaly CHEST: Clear to auscultation. Normal effort. HEART: NL S1/S2, regular, no murmur ABDOMEN: BS+, soft, nontender, reducible large ventral hernia EXTREMITIES: No cyanosis, edema, or clubbing NEUROLOGIC: CN intact and symmetric to inspection. MUSCULOSKELETAL: Tone and strength symmetric. PSYCH: Alert. Oriented to person, place, and time. Objective Data Vital Signs Vital Signs: Vital Signs - 24 hr 01/11/20 14:00 01/11/20 16:00 01/11/20 18:00 Temperat
[2020-01-12] MEDS: AZITHROMYCIN 250 MG TABLET 500 MG PO (17:32)
[2020-01-12 18:20] LABS: Glucose Point of Care 196 (65-105)
[2020-01-12] MEDS: ATORVASTATIN 40 MG TABLET PO (21:22)
[2020-01-13] VITALS (8 sets, daily range): BP systolic 105–129; BP diastolic 65–78; PULSE 75–90; RESP 16–20; TEMP 37.4–39.4; O2SAT 91–100
--- NOTE | 2020-01-13 00:38 | PC.NURSE ---
PATIENT TRANSFERRED TO [facility] AT 2345 ON 01/12/20. REPORT GIVEN TO FAZAL BOLAND. PATIENT TRANSPORTED VIA W/C. ALL OF PATIENTS BELONGINGS SENT WITH HER.
[2020-01-13] MEDS: ACETAMINOPHEN 325 MG TABLET 650 MG PO ×2 (04:55→18:54)
[2020-01-13] MEDS: PANTOPRAZOLE 40 MG TABLET PO ×2 (08:35→20:52)
[2020-01-13] MEDS: PIOGLITAZONE HCL 15 MG TAB PO (08:35)
[2020-01-13] MEDS: INSULIN ASPART (*BKC) 100 UNITS/ML SUB-Q ×3 (08:42→17:35)
--- NOTE | 2020-01-13 09:22 | PM.PNCARD ---
Progress Note: A&P Assessment and Plan (1) Supraventricular tachycardia: Code(s): I47.1 - Supraventricular tachycardia Status: Acute Assessment and Plan: Agree with diltiazem. Likely better choice than beta-lisa for prevention of SVT. (2) Hypertension: Qualifiers: Hypertension type: unspecified Qualified Code(s): I10 - Essential (primary) hypertension Code(s): I10 - Essential (primary) hypertension Status: Chronic Assessment and Plan: Reasonably controlled. Will likely need to add back some her lisinopril/hydrochlorothiazide She does have some mild swelling in will treat her with 40 mg p.o. Lasix x1 (3) Hypokalemia: Code(s): E87.6 - Hypokalemia Status: Acute Assessment and Plan: Await basic metabolic panel but replace as needed. (4) Pneumonia: Qualifiers: Laterality: left Lung location: lower lobe of lung Pneumonia type: due to unspecified organism Qualified Code(s): J18.9 - Pneumonia, unspecified organism Code(s): J18.9 - Pneumonia, unspecified organism Status: Acute Assessment and Plan: COVID positive. 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 Stable at this point Subjective Date/time seen: 01/13/20 09:22 Interval history: Admitted 01/09 with SARS-CoV-2 pneumonia and had some SVT treated with adenosine Date of service 01/13/2020: Overall feeling okay today. Transferred out of the ICU yesterday. No chest pain or significant shortness breath. Mild swelling around the. Review of Systems Constitutional: Constitutional: Reports no additional constitutional complaints Eyes: Eyes: Reports no additional eye complaints ENT: Reports system reviewed and no additional complaints, except as documented Cardiovascular: Cardiovascular: Reports as per HPI, Reports palpitations and Reports dyspnea Respiratory: Respiratory: Reports as per HPI and Reports dyspnea Gastrointestinal: Gastrointestinal: Reports no additional gastrointestinal complaints Genitourinary: Genitourinary: Reports no additional female genitourinary complaints Musculoskeletal: Musculoskeletal: Reports no additional musculoskeletal complaints Integumentary/Breasts: Skin/Breast: Reports system reviewed and no additional complaints, except as docu Neurologic: Reports system reviewed and no additional complaints, except as documented Endocrine: Endocrine: Reports no additional endocrine complaints and Reports palpitations Hematologic/Lymphatic: Hematologic/Lymphatic: Reports no additional hematologic/lymphatic complaints Allergic/Immunologic: Allergic/Immunologic: Reports no additional allergic/immunologic complaints Exam Const: General: comfortable and no acute distress HENMT: Mouth: Yes moist mucous membranes Eyes: Sclera: sclerae normal Pupils: Equal, round and reactive pupils present Neck: Neck: supple and no JVD Thyroid: thyroid normal Other: Carotid upstrokes are normal no bruits Resp: Effort & Inspection: normal respiratory effort Auscultation: clear to auscultation bilaterally Cardio: Rate: regular rate Rhythm: regular rhythm Other: No murmur no gallop no rub GI: Auscultation: normal bowel sounds Skin: General skin exam: normal color Neuro: Cranial nerves: Yes Equal, round and reactive pupils present Cognition (Neuro): normal cognition Extrem: General: edema Objective Data Vital Signs Vital Signs: Vital Signs - 24 hr 01/12/20 10:00 01/12/20 10:01 01/12/20 10:37 Temperature Pulse Rate 79 84 Respiratory Rate 10 L Blood Pressure 143/88 H Pulse Oximetry 100 97 01/12/20 12:00 01/12/20 12:01 01/12/20 14:00 Temperature 37.2 C Pulse Rate 85 85 78 Respiratory Rate 17 Blood Pressure 145/79 H Pulse Oximetry 98 01/12/20 16:00 01/12/20 21:31 01/12/20 23:45 Temperature 38.1 C H 38.1 C H 38.3 C H Pulse Rate 79 72 82 Respiratory Rate 17 16 20 Blood Pressure 138/91 H 144/86 H 142/87 H Pulse Oximetry 95
[2020-01-13 10:05] LABS: Glucose Point of Care 222 (65-105)
[2020-01-13 10:13] LABS: D Dimer 0.69 ug/mL (<0.48)
[2020-01-13 10:16] LABS: Alanine Aminotransferase 49 U/L (4-35); Albumin Level 3.5 g/dL (3.5-5.1); Alkaline Phosphatase 101 U/L (38-126); Aspartate Amino Transferase 38 U/L (14-36); Bilirubin,Total 0.5 mg/dL (0.2-1.3); Blood Urea Nitrogen 5 mg/dL (7-17); CRP 2.8 mg/dL (<1.0); Calcium 8.1 mg/dL (8.4-10.2); Carbon Dioxide 24 mmol/L (22-30); Chloride 100 mmol/L (98-107); Estimated CRCL calculation 107 ml/min; Estimated Glomerular Filt Rate > 60; Glucose 236 mg/dL (65-105); Hematocrit 42.9 % (37.0-47.0); Hemoglobin 13.9 g/dL (12.0-15.0); Lactate Dehydrogenase 679 U/L (313-618); Mean Corpuscular HGB Conc 32.4 g/dl (32-36); Mean Corpuscular Hemoglobin 26.2 pg (26-34); Mean Corpuscular Volume 80.9 fl (80-100); Mean Platelet Volume 12.3 fl (7.4-10.4); Platelet Count Result 148 k/mm3 (150-375); Potassium 3.5 mmol/L (3.4-5.0); Red Cell Distribution Width 13.6 % (11.5-14.5); Sodium 131 mmol/L (137-145); White Blood Count 6.1 K/mm3 (4.5-10.0)
[2020-01-13 10:44] LABS: Iron 50 ug/dL (37-170)
[2020-01-13 10:53] LABS: Percent Iron Saturation 16 % (20-50)
[2020-01-13 12:44] LABS: Hepatitis B Surface Antigen Negative (Negative)
[2020-01-13 12:51] LABS: HAV RESULT Negative (Negative)
[2020-01-13 13:01] LABS: Hepatitis C Virus Antibody Negative (Negative)
[2020-01-13 13:43] LABS: Glucose Point of Care 215 (65-105)
[2020-01-13] MEDS: FUROSEMIDE 40 MG TABLET PO (13:45)
--- NOTE | 2020-01-13 17:15 | P.PNIM_ITS ---
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 * Inflammatory markers trending up slightly * Ceftriaxone and azithromycin day 4 (2) Supraventricular tachycardia: Code(s): I47.1 - Supraventricular tachycardia Status: Acute Assessment and Plan: * Chronic, intermittent * Failed beta-lisa * Doint well on trial of diltiazem CD 180mg dialy * If that fails, consider trial of antiarrhythmic vs ablation (3) Elevated troponin: Code(s): R79.89 - Other specified abnormal findings of blood chemistry Status: Acute Assessment and Plan: * Likely due to PSVT * No ACS (4) Hypertension: Qualifiers: Hypertension type: unspecified Qualified Code(s): I10 - Essential (primary) hypertension Code(s): I10 - Essential (primary) hypertension Status: Chronic Assessment and Plan: * Diltiazem * Hold other antihypertensives (5) Ventral hernia: Qualifiers: Obstruction and gangrene presence: without obstruction or gangrene Qualified Code(s): K43.9 - Ventral hernia without obstruction or gangrene Code(s): K43.9 - Ventral hernia without obstruction or gangrene Status: Acute Assessment and Plan: * Asymptomatic (6) Diabetes mellitus: Qualifiers: Diabetes mellitus type: type 2 Diabetes mellitus lobsterman insulin use: without fpc use Diabetes mellitus complication status: with hyperglycemia Qualified Code(s): E11.65 - Type 2 diabetes mellitus with hyperglycemia Code(s): E11.9 - Type 2 diabetes mellitus without complications Status: Chronic Assessment and Plan: * Continue sitagliptin and rosiglitazone * Supplement with SSI (7) Chest pain: Qualifiers: Chest pain type: unspecified Qualified Code(s): R07.9 - Chest pain, unspecified Code(s): R07.9 - Chest pain, unspecified Status: Acute Assessment and Plan: * Was likely due to PSVT, pneumonia * Hx negative coronary angiogram (8) Elevated liver enzymes: Code(s): R74.8 - Abnormal levels of other serum enzymes Status: Acute Assessment and Plan: * Reactive vs hepatic steatosis vs combination * Simlilar levels in past * Heptatitis A, B, C negative (9) Hyponatremia: Code(s): E87.1 - Hypo-osmolality and hyponatremia Status: Acute Assessment and Plan: * Likely due to HCTZ, decreased oral intake, possible SIADH due to pneumonia * 01/10 FEU = 43.2% (not prerenal, so c/w SIADH), IVF d/c'ed * 01/09 Na 129, 01/11 Na 133, 01/12 131 Subjective Date/time seen: 01/13/20 13:15 Interval history: Admitted 01/09 with SARS-CoV-2 pneumonia 01/12. Main c/o is fatigue. Still with dry cough. Tolerated diet. No GI or complaints. No abnormal bleeding. No chest pain. Shortness of breath with any activity. Review of Systems Review of Systems: All systems reviewed & are unremarkable except as noted in HPI and below Exam Narrative: Exam Narrative: HEENT: EOMI, PERRL, sclerae nonicteric, pharyngeal mucosa pink and intact
--- NOTE | 2020-01-13 17:15 | PM.IMPN ---
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 Inflammatory markers trending up slightly Ceftriaxone and azithromycin day 4 (2) Supraventricular tachycardia: Code(s): I47.1 - Supraventricular tachycardia Status: Acute Assessment and Plan: Chronic, intermittent Failed beta-lisa Doint well on trial of diltiazem CD 180mg dialy If that fails, consider trial of antiarrhythmic vs ablation (3) Elevated troponin: Code(s): R79.89 - Other specified abnormal findings of blood chemistry Status: Acute Assessment and Plan: Likely due to PSVT No ACS (4) Hypertension: Qualifiers: Hypertension type: unspecified Qualified Code(s): I10 - Essential (primary) hypertension Code(s): I10 - Essential (primary) hypertension Status: Chronic Assessment and Plan: Diltiazem Hold other antihypertensives (5) Ventral hernia: Qualifiers: Obstruction and gangrene presence: without obstruction or gangrene Qualified Code(s): K43.9 - Ventral hernia without obstruction or gangrene Code(s): K43.9 - Ventral hernia without obstruction or gangrene Status: Acute Assessment and Plan: Asymptomatic (6) Diabetes mellitus: Qualifiers: Diabetes mellitus type: type 2 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: without fdc use Diabetes mellitus complication status: with hyperglycemia Qualified Code(s): E11.65 - Type 2 diabetes mellitus with hyperglycemia Code(s): E11.9 - Type 2 diabetes mellitus without complications Status: Chronic Assessment and Plan: Continue sitagliptin and rosiglitazone Supplement with SSI (7) Chest pain: Qualifiers: Chest pain type: unspecified Qualified Code(s): R07.9 - Chest pain, unspecified Code(s): R07.9 - Chest pain, unspecified Status: Acute Assessment and Plan: Was likely due to PSVT, pneumonia Hx negative coronary angiogram (8) Elevated liver enzymes: Code(s): R74.8 - Abnormal levels of other serum enzymes Status: Acute Assessment and Plan: Reactive vs hepatic steatosis vs combination Simlilar levels in past Heptatitis A, B, C negative (9) Hyponatremia: Code(s): E87.1 - Hypo-osmolality and hyponatremia Status: Acute Assessment and Plan: Likely due to HCTZ, decreased oral intake, possible SIADH due to pneumonia 01/10 FEU = 43.2% (not prerenal, so c/w SIADH), IVF d/c'ed 01/09 Na 129, 01/11 Na 133, 01/12 131 Subjective Date/time seen: 01/13/20 13:15 Interval history: Admitted 01/09 with SARS-CoV-2 pneumonia 01/12. Main c/o is fatigue. Still with dry cough. Tolerated diet. No GI or complaints. No abnormal bleeding. No chest pain. Shortness of breath with any activity. Review of Systems Review of Systems: All systems reviewed & are unremarkable except as noted in HPI and below Exam Narrative: Exam Narrative: HEENT: EOMI, PERRL, sclerae nonicteric, pharyngeal mucosa pink and intact NECK: No JVD, adenopathy, or thyromegaly CHEST: Few fine crackles in bilateral lower lobes. Normal effort. HEART: NL S1/S2, regular, no murmur ABDOMEN: BS+, soft, nontender, reducible large ventral hernia EXTREMITIES: No cyanosis, edema, or clubbing NEUROLOGIC: CN intact and symmetric to inspection. MUSCULOSKELETAL: Tone and strength symmetric. PSYCH: Alert. Oriented to person, place, and time. Objective Data Vital Signs Vital Signs: Vital Signs - 24 hr 01/12/20 21:31 01/12/20 23:45 0
[2020-01-13] MEDS: AZITHROMYCIN 250 MG TABLET 500 MG PO (17:29)
[2020-01-13 17:40] LABS: Glucose Point of Care 319 (65-105)
[2020-01-13 20:48] LABS: Glucose Point of Care 306 (65-105)
[2020-01-13] MEDS: INSULIN GLARGINE (*BKC) 100 UNITS/ML 14 UNITS SUB-Q (20:51)
[2020-01-13] MEDS: ATORVASTATIN 40 MG TABLET PO (20:52)
[2020-01-14] VITALS (9 sets, daily range): BP systolic 100–124; BP diastolic 59–75; PULSE 71–96; RESP 16–20; TEMP 36.8–38.1; O2SAT 92–98
[2020-01-14] MEDS: ACETAMINOPHEN 325 MG TABLET 650 MG PO (05:50)
[2020-01-14 06:30] LABS: Hematocrit 44.3 % (37.0-47.0); Hemoglobin 14.5 g/dL (12.0-15.0); Mean Corpuscular HGB Conc 32.7 g/dl (32-36); Mean Corpuscular Volume 79.5 fl (80-100); Mean Platelet Volume 10.9 fl (7.4-10.4); Platelet Count Result 173 k/mm3 (150-375); Red Blood Count 5.57 M/mm3 (4.2-5.4); Red Cell Distribution Width 13.2 % (11.5-14.5); White Blood Count 6.9 K/mm3 (4.5-10.0)
[2020-01-14 06:54] LABS: Alanine Aminotransferase 48 U/L (4-35); Albumin Level 3.8 g/dL (3.5-5.1); Alkaline Phosphatase 112 U/L (38-126); Aspartate Amino Transferase 40 U/L (14-36); Bilirubin,Total 0.5 mg/dL (0.2-1.3); Blood Urea Nitrogen 6 mg/dL (7-17); CRP 5.6 mg/dL (<1.0); Calcium 8.4 mg/dL (8.4-10.2); Carbon Dioxide 27 mmol/L (22-30); Chloride 97 mmol/L (98-107); Estimated CRCL calculation 88 ml/min; Estimated Glomerular Filt Rate > 60; Glucose 190 mg/dL (65-105); Lactate Dehydrogenase 717 U/L (313-618); Potassium 3.5 mmol/L (3.4-5.0); Sodium 132 mmol/L (137-145)
[2020-01-14 07:39] LABS: D Dimer 0.68 ug/mL (<0.48)
[2020-01-14] MEDS: PIOGLITAZONE HCL 15 MG TAB PO (08:06)
[2020-01-14] MEDS: PANTOPRAZOLE 40 MG TABLET PO ×2 (08:06→19:53)
[2020-01-14 08:24] LABS: Glucose Point of Care 212 (65-105)
[2020-01-14] MEDS: INSULIN ASPART (*BKC) 100 UNITS/ML SUB-Q ×3 (08:36→17:20)
--- NOTE | 2020-01-14 10:32 | PM.PNCARD ---
Progress Note: A&P Assessment and Plan (1) Supraventricular tachycardia: Code(s): I47.1 - Supraventricular tachycardia Status: Acute Assessment and Plan: Agree with diltiazem. Likely better choice than beta-lisa for prevention of SVT. (2) Hypertension: Qualifiers: Hypertension type: unspecified Qualified Code(s): I10 - Essential (primary) hypertension Code(s): I10 - Essential (primary) hypertension Status: Chronic Assessment and Plan: Reasonably controlled. Will likely need to add back some her lisinopril/hydrochlorothiazide (3) Hypokalemia: Code(s): E87.6 - Hypokalemia Status: Acute Assessment and Plan: Another 40 mg of p.o. furosemide today and 40 mEq of p.o. 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 Stable at this point Subjective Date/time seen: 01/14/20 10:32 Interval history: Admitted 01/09 with SARS-CoV-2 pneumonia and had some SVT treated with adenosine Date of service 01/14/2020: She states that her swelling is better but still present. No chest pain. feels tired. Review of Systems Constitutional: Constitutional: Reports no additional constitutional complaints Eyes: Eyes: Reports no additional eye complaints ENT: Reports system reviewed and no additional complaints, except as documented Cardiovascular: Cardiovascular: Reports as per HPI, Reports palpitations and Reports dyspnea Respiratory: Respiratory: Reports as per HPI and Reports dyspnea Gastrointestinal: Gastrointestinal: Reports no additional gastrointestinal complaints Genitourinary: Genitourinary: Reports no additional female genitourinary complaints Musculoskeletal: Musculoskeletal: Reports no additional musculoskeletal complaints Integumentary/Breasts: Skin/Breast: Reports system reviewed and no additional complaints, except as docu Neurologic: Reports system reviewed and no additional complaints, except as documented Endocrine: Endocrine: Reports no additional endocrine complaints and Reports palpitations Hematologic/Lymphatic: Hematologic/Lymphatic: Reports no additional hematologic/lymphatic complaints Allergic/Immunologic: Allergic/Immunologic: Reports no additional allergic/immunologic complaints Exam Const: General: comfortable and no acute distress Eyes: Sclera: sclerae normal Neck: Neck: supple Resp: Effort & Inspection: normal respiratory effort Cardio: Rate: regular rate Skin: General skin exam: normal color Neuro: Cognition (Neuro): normal cognition Extrem: General: edema Objective Data Vital Signs Vital Signs: Vital Signs - 24 hr 01/13/20 18:00 01/13/20 18:54 01/13/20 22:08 Temperature 39.4 C H 37.7 C H 37.7 C H Pulse Rate 75 81 Respiratory Rate 18 16 Blood Pressure 106/72 108/65 Pulse Oximetry 91 100 01/14/20 02:00 01/14/20 05:50 01/14/20 06:00 Temperature 37.5 C 38.1 C H 38.1 C H Pulse Rate 86 71 Respiratory Rate 18 16 Blood Pressure 100/62 119/59 L Pulse Oximetry 96 97 Intake/Output Intake/Output: Intake & Output 01/11/20 01/12/20 01/13/20 01/14/20 23:59 23:59 23:59 23:59 Intake Total 1290 1770 1890 440 Output Total 1200 2650 2300 Balance 90 -880 -410 440 Meds/Results Medications: Active Medications Generic Name Dose Route Start Last Admin Trade Name Freq PRN Reason Stop Dose Admin Acetaminophen 650 mg 01/11/20 04:28 01/14/20 05:50 Tylenol Tablet PO 650 mg Q4H PRN Administration Mild Pain (1-3) or Fever Hydrocodone Bitart/Acetaminophen 1 tab 01/11/20 04:28 [place] 5-325 Mg PO Q4H PRN Pain Rated 4-6 Atorvastatin Calcium 40 mg 01/11/20
[2020-01-14] MEDS: FUROSEMIDE 40 MG TABLET PO (11:51)
[2020-01-14] MEDS: POTASSIUM CHLORIDE 20 MEQ TABLET 40 MEQ PO (11:51)
[2020-01-14 12:07] LABS: Glucose Point of Care 235 (65-105)
--- NOTE | 2020-01-14 12:24 | P.PNIM_ITS ---
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-2 rt-PCR POSITIVE, symptom onset 01/09 * Inflammatory markers: D Dimer and ALT/AST stable; but LDH, ferritin, CRP up a bit * Fever to 103 01/12 PM * 01/13 Remains on R/A * Ceftriaxone day 5, d/c 01/13 * Azithromycin day 5 (2) Supraventricular tachycardia: Code(s): I47.1 - Supraventricular tachycardia Status: Acute Assessment and Plan: * Chronic, intermittent * Failed beta-lisa * Doint well on trial of diltiazem CD 180mg dialy * If that fails, consider trial of antiarrhythmic vs ablation (3) Elevated troponin: Code(s): R79.89 - Other specified abnormal findings of blood chemistry Status: Acute Assessment and Plan: * Likely due to PSVT * No ACS (4) Hypertension: Qualifiers: Hypertension type: unspecified Qualified Code(s): I10 - Essential (primary) hypertension Code(s): I10 - Essential (primary) hypertension Status: Chronic Assessment and Plan: * Diltiazem * Hold other antihypertensives (5) Ventral hernia: Qualifiers: Obstruction and gangrene presence: without obstruction or gangrene Qualified Code(s): K43.9 - Ventral hernia without obstruction or gangrene Code(s): K43.9 - Ventral hernia without obstruction or gangrene Status: Acute Assessment and Plan: * Asymptomatic (6) Diabetes mellitus: Qualifiers: Diabetes mellitus type: type 2 Diabetes mellitus manager long term care insulin use: without manager long term care use Diabetes mellitus complication status: with hyperglycemia Qualified Code(s): E11.65 - Type 2 diabetes mellitus with hyperglycemia Code(s): E11.9 - Type 2 diabetes mellitus without complications Status: Chronic Assessment and Plan: * Continue sitagliptin and rosiglitazone * Supplement with SSI (7) Chest pain: Qualifiers: Chest pain type: unspecified Qualified Code(s): R07.9 - Chest pain, unspecified Code(s): R07.9 - Chest pain, unspecified Status: Acute Assessment and Plan: * Was likely due to PSVT, pneumonia * Hx negative coronary angiogram (8) Elevated liver enzymes: Code(s): R74.8 - Abnormal levels of other serum enzymes Status: Acute Assessment and Plan: * Reactive vs hepatic steatosis vs combination * Simlilar levels in past * Heptatitis A, B, C negative (9) Hyponatremia: Code(s): E87.1 - Hypo-osmolality and hyponatremia Status: Acute Assessment and Plan: * Likely due to HCTZ, decreased oral intake, possible SIADH due to pneumonia * 01/10 FEU = 43.2% (not prerenal, so c/w SIADH), IVF d/c'ed * 01/09 Na 129, 01/11 Na 133, 01/12 131, 01/13 132 Subjective Date/time seen: 01/14/20 12:24 Interval history: Admitted 01/09 with SARS-CoV-2 pneumonia 01/12. Main c/o is fatigue. Mild aching. No cough. Shortness of breath with any activity. Tolerated diet. No GI or complaints. No abnormal bleeding. No chest pain. Review of Systems Review of Systems: All systems reviewed & are unremarkable except as noted in HPI and b
--- NOTE | 2020-01-14 12:24 | PM.IMPN ---
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, symptom onset 01/09 Inflammatory markers: D Dimer and ALT/AST stable; but LDH, ferritin, CRP up a bit Fever to 103 /17 PM 01/13 Remains on R/A Ceftriaxone day 5, d/c 01/13 Azithromycin day 5 (2) Supraventricular tachycardia: Code(s): I47.1 - Supraventricular tachycardia Status: Acute Assessment and Plan: Chronic, intermittent Failed beta-lisa Doint well on trial of diltiazem CD 180mg dialy If that fails, consider trial of antiarrhythmic vs ablation (3) Elevated troponin: Code(s): R79.89 - Other specified abnormal findings of blood chemistry Status: Acute Assessment and Plan: Likely due to PSVT No ACS (4) Hypertension: Qualifiers: Hypertension type: unspecified Qualified Code(s): I10 - Essential (primary) hypertension Code(s): I10 - Essential (primary) hypertension Status: Chronic Assessment and Plan: Diltiazem Hold other antihypertensives (5) Ventral hernia: Qualifiers: Obstruction and gangrene presence: without obstruction or gangrene Qualified Code(s): K43.9 - Ventral hernia without obstruction or gangrene Code(s): K43.9 - Ventral hernia without obstruction or gangrene Status: Acute Assessment and Plan: Asymptomatic (6) Diabetes mellitus: Qualifiers: Diabetes mellitus type: type 2 Diabetes mellitus 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 continuous churn insulin use: without [place] [facility] use Diabetes mellitus complication status: with hyperglycemia Qualified Code(s): E11.65 - Type 2 diabetes mellitus with hyperglycemia Code(s): E11.9 - Type 2 diabetes mellitus without complications Status: Chronic Assessment and Plan: Continue sitagliptin and rosiglitazone Supplement with SSI (7) Chest pain: Qualifiers: Chest pain type: unspecified Qualified Code(s): R07.9 - Chest pain, unspecified Code(s): R07.9 - Chest pain, unspecified Status: Acute Assessment and Plan: Was likely due to PSVT, pneumonia Hx negative coronary angiogram (8) Elevated liver enzymes: Code(s): R74.8 - Abnormal levels of other serum enzymes Status: Acute Assessment and Plan: Reactive vs hepatic steatosis vs combination Simlilar levels in past Heptatitis A, B, C negative (9) Hyponatremia: Code(s): E87.1 - Hypo-osmolality and hyponatremia Status: Acute Assessment and Plan: Likely due to HCTZ, decreased oral intake, possible SIADH due to pneumonia 01/10 FEU = 43.2% (not prerenal, so c/w SIADH), IVF d/c'ed 01/09 Na 129, 01/11 Na 133, 01/12 131, 01/13 132 Subjective Date/time seen: 01/14/20 12:24 Interval history: Admitted 01/09 with SARS-CoV-2 pneumonia 01/12. Main c/o is fatigue. Mild aching. No cough. Shortness of breath with any activity. Tolerated diet. No GI or complaints. No abnormal bleeding. No chest pain. Review of Systems Review of Systems: All systems reviewed & are unremarkable except as noted in HPI and below Exam Narrative: Exam Narrative: HEENT: EOMI, PERRL, sclerae nonicteric, pharyngeal mucosa pink and intact NECK: No JVD, adenopathy, or thyromegaly CHEST: CTA. NL effort. HEART: NL S1/S2, regular, no murmur ABDOMEN: BS+, soft, nontender, reducible large ventral hernia EXTREMITIES: No cyanosis, edema, or clubbing NEUROLOGIC: CN intact and symmetric to inspection. MUSCULOSKELETAL: Tone and strength symmetric. PSYCH: Alert. Oriented to person, place, and time. Objective Pratik
[2020-01-14] MEDS: AZITHROMYCIN 250 MG TABLET 500 MG PO (17:19)
[2020-01-14 17:35] LABS: Glucose Point of Care 276 (65-105)
[2020-01-14] MEDS: ATORVASTATIN 40 MG TABLET PO (19:53)
[2020-01-14] MEDS: INSULIN GLARGINE (*BKC) 100 UNITS/ML 14 UNITS SUB-Q (20:06)
[2020-01-14 21:40] LABS: Glucose Point of Care 254 (65-105)
[2020-01-14] MEDS: PROMETHAZINE HCL 25 MG/ML AMPUL 12.5 MG IV PUSH (21:57)
[2020-01-15] VITALS (7 sets, daily range): BP systolic 108–124; BP diastolic 71–79; PULSE 86–92; RESP 16–20; TEMP 36.6–37.4; O2SAT 92–100
[2020-01-15 06:36] LABS: D Dimer 0.87 ug/mL (<0.48)
[2020-01-15 06:44] LABS: Alanine Aminotransferase 44 U/L (4-35); Albumin Level 3.6 g/dL (3.5-5.1); Alkaline Phosphatase 110 U/L (38-126); Aspartate Amino Transferase 38 U/L (14-36); Bilirubin,Total 0.4 mg/dL (0.2-1.3); Blood Urea Nitrogen 7 mg/dL (7-17); Calcium 8.2 mg/dL (8.4-10.2); Carbon Dioxide 23 mmol/L (22-30); Chloride 96 mmol/L (98-107); Estimated CRCL calculation 88 ml/min; Estimated Glomerular Filt Rate > 60; Glucose 254 mg/dL (65-105); Lactate Dehydrogenase 739 U/L (313-618); Potassium 3.2 mmol/L (3.4-5.0); Sodium 131 mmol/L (137-145)
[2020-01-15 07:03] LABS: CRP 12.8 mg/dL (<1.0)
[2020-01-15 08:24] LABS: Glucose Point of Care 223 (65-105)
[2020-01-15] MEDS: POTASSIUM CHLORIDE 20 MEQ TABLET 40 MEQ PO ×2 (08:46→12:16)
[2020-01-15] MEDS: PANTOPRAZOLE 40 MG TABLET PO ×2 (08:47→20:06)
[2020-01-15] MEDS: PIOGLITAZONE HCL 15 MG TAB PO (08:47)
[2020-01-15] MEDS: ENOXAPARIN 40 MG/0.4 ML SYRINGE SUB-Q (08:47)
[2020-01-15 08:50] LABS: Hematocrit 44.5 % (37.0-47.0); Hemoglobin 14.7 g/dL (12.0-15.0); Mean Corpuscular Hemoglobin 26.3 pg (26-34); Mean Corpuscular Volume 79.6 fl (80-100); Mean Platelet Volume 11.7 fl (7.4-10.4); Platelet Count Result 212 k/mm3 (150-375); Red Blood Count 5.59 M/mm3 (4.2-5.4); Red Cell Distribution Width 13.5 % (11.5-14.5); White Blood Count 8.9 K/mm3 (4.5-10.0)
--- NOTE | 2020-01-15 10:07 | PM.PNCARD ---
Progress Note: A&P Assessment and Plan (1) Supraventricular tachycardia: Code(s): I47.1 - Supraventricular tachycardia Status: Acute Assessment and Plan: Agree with diltiazem. Likely better choice than beta-lisa for prevention of SVT. (2) Hypertension: Qualifiers: Hypertension type: unspecified Qualified Code(s): I10 - Essential (primary) hypertension Code(s): I10 - Essential (primary) hypertension Status: Chronic Assessment and Plan: Reasonably controlled. Will likely need to add back some her lisinopril/hydrochlorothiazide at some point (3) Hypokalemia: Code(s): E87.6 - Hypokalemia Status: Acute Assessment and Plan: agree with potassium supplementation which has already been ordered and given. (4) Pneumonia: Qualifiers: Laterality: left Lung location: lower lobe of lung Pneumonia type: due to unspecified organism Qualified Code(s): J18.9 - Pneumonia, unspecified organism Code(s): J18.9 - Pneumonia, unspecified organism Status: Acute Assessment and Plan: COVID positive. Treatment per inspector weights and measures. inflammatory markers continued to worsen. Concerning for pending decompensation Subjective Date/time seen: 01/15/20 10:07 Interval history: Admitted 01/09 with SARS-CoV-2 pneumonia and had some SVT treated with adenosine Date of service 01/15/2020: She states that her swelling is better but still present. No chest pain. feels tired. She had some vomiting last night. Review of Systems Constitutional: Constitutional: Reports no additional constitutional complaints Eyes: Eyes: Reports no additional eye complaints ENT: Reports system reviewed and no additional complaints, except as documented Cardiovascular: Cardiovascular: Reports as per HPI, Reports palpitations and Reports dyspnea Respiratory: Respiratory: Reports as per HPI and Reports dyspnea Gastrointestinal: Gastrointestinal: Reports nausea Genitourinary: Genitourinary: Reports no additional female genitourinary complaints Musculoskeletal: Musculoskeletal: Reports no additional musculoskeletal complaints Integumentary/Breasts: Skin/Breast: Reports system reviewed and no additional complaints, except as docu Neurologic: Reports system reviewed and no additional complaints, except as documented Endocrine: Endocrine: Reports no additional endocrine complaints and Reports palpitations Hematologic/Lymphatic: Hematologic/Lymphatic: Reports no additional hematologic/lymphatic complaints Allergic/Immunologic: Allergic/Immunologic: Reports no additional allergic/immunologic complaints Exam Const: General: comfortable and no acute distress HENMT: Mouth: Yes moist mucous membranes Eyes: Sclera: sclerae normal Neck: Neck: supple Resp: Effort & Inspection: normal respiratory effort Skin: General skin exam: normal color Neuro: Cognition (Neuro): normal cognition Extrem: General: edema Objective Data Vital Signs Vital Signs: Vital Signs - 24 hr 01/14/20 15:28 01/14/20 18:00 01/14/20 18:54 Temperature 37.4 C 37.4 C Pulse Rate 91 75 87 Respiratory Rate 18 18 20 Blood Pressure 124/71 112/64 Pulse Oximetry 96 96 92 01/14/20 22:00 01/15/20 02:00 01/15/20 06:00 Temperature 37.6 C 36.8 C 36.9 C Pulse Rate 96 86 91 Respiratory Rate 18 16 16 Blood Pressure 113/61 108/72 111/75 Pulse Oximetry 98 100 95 Intake/Output Intake/Output: Intake & Output 01/12/20 01/13/20 01/14/20 01/15/20 23:59 23:59 23:59 23:59 Intake Total 1770 1890 1990 250 Output Total 2650 2300 500 600 Balance -880 -410 1490 -350 Meds/Results Medications: Active Medications Generic Name Dose Route Start Last Admin Trade Name Freq PRN Reason Stop Dose Admin Acetaminophen 650 mg 01/11/20 04:28 01/14/20 05:50 Tylenol Tablet PO 650 mg Q4H PRN Administration Mild Pain (1-3) or Fever Hydrocodone Bitart/Acetaminophen 1 tab 01/10
[2020-01-15 12:29] LABS: Glucose Point of Care 248 (65-105)
[2020-01-15 13:05] LABS: Procalcitonin <0.10 ng/mL (<0.10)
[2020-01-15] MEDS: AZITHROMYCIN 250 MG TABLET 500 MG PO (17:35)
--- NOTE | 2020-01-15 17:50 | P.PNIM_ITS ---
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, symptom onset 01/09 * Inflammatory markers: D Dimer and ALT/AST to slightly rising; LDH, ferritin, CRP up a bit * Fever to 103 5/17 PM * 01/13 Remains on R/A * Ceftriaxone day 6, d/c 01/13 * Azithromycin day 6 (2) Supraventricular tachycardia: Code(s): I47.1 - Supraventricular tachycardia Status: Acute Assessment and Plan: * Chronic, intermittent * Failed beta-lisa * Doing well on trial of diltiazem CD 180mg dialy * If that fails, consider trial of antiarrhythmic vs ablation (3) Elevated troponin: Code(s): R79.89 - Other specified abnormal findings of blood chemistry Status: Acute Assessment and Plan: * Likely due to PSVT * No ACS (4) Hypertension: Qualifiers: Hypertension type: unspecified Qualified Code(s): I10 - Essential (primary) hypertension Code(s): I10 - Essential (primary) hypertension Status: Chronic Assessment and Plan: * Diltiazem * Hold other antihypertensives (5) Ventral hernia: Qualifiers: Obstruction and gangrene presence: without obstruction or gangrene Qualified Code(s): K43.9 - Ventral hernia without obstruction or gangrene Code(s): K43.9 - Ventral hernia without obstruction or gangrene Status: Acute Assessment and Plan: * Asymptomatic (6) Diabetes mellitus: Qualifiers: Diabetes mellitus type: type 2 Diabetes mellitus custodial insulin use: without watcher automat long goods use Diabetes mellitus complication status: with hyperglycemia Qualified Code(s): E11.65 - Type 2 diabetes mellitus with hyperglycemia Code(s): E11.9 - Type 2 diabetes mellitus without complications Status: Chronic Assessment and Plan: * Continue sitagliptin and rosiglitazone * Supplement with SSI (7) Chest pain: Qualifiers: Chest pain type: unspecified Qualified Code(s): R07.9 - Chest pain, unspecified Code(s): R07.9 - Chest pain, unspecified Status: Acute Assessment and Plan: * Was likely due to PSVT, pneumonia * Hx negative coronary angiogram (8) Elevated liver enzymes: Code(s): R74.8 - Abnormal levels of other serum enzymes Status: Acute Assessment and Plan: * Reactive vs hepatic steatosis vs combination * Simlilar levels in past * Heptatitis A, B, C negative (9) Hyponatremia: Code(s): E87.1 - Hypo-osmolality and hyponatremia Status: Acute Assessment and Plan: * Likely due to HCTZ, decreased oral intake, possible SIADH due to pneumonia * 01/10 FEU = 43.2% (not prerenal, so c/w SIADH), IVF d/c'ed * 01/09 Na 129, 01/11 Na 133, 01/12 131, 01/13 132, 01/14 131 Subjective Date/time seen: 01/15/20 17:50 Interval history: Admitted 01/09 with SARS-CoV-2 pneumonia 01/14. Main c/o is fatigue. Mild aching. No cough. Shortness of breath with any activity. Tolerated diet. No GI or complaints. No abnormal bleeding. No chest pain. Exam Narrative: Exam Narrative: Blood pressure 124/80 pulse is 90 saturating 92% on marianna
--- NOTE | 2020-01-15 17:50 | PM.IMPN ---
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, symptom onset 01/09 Inflammatory markers: D Dimer and ALT/AST to slightly rising; LDH, ferritin, CRP up a bit Fever to 103 5/17 PM 01/13 Remains on R/A Ceftriaxone day 6, d/c 01/13 Azithromycin day 6 (2) Supraventricular tachycardia: Code(s): I47.1 - Supraventricular tachycardia Status: Acute Assessment and Plan: Chronic, intermittent Failed beta-lisa Doing well on trial of diltiazem CD 180mg dialy If that fails, consider trial of antiarrhythmic vs ablation (3) Elevated troponin: Code(s): R79.89 - Other specified abnormal findings of blood chemistry Status: Acute Assessment and Plan: Likely due to PSVT No ACS (4) Hypertension: Qualifiers: Hypertension type: unspecified Qualified Code(s): I10 - Essential (primary) hypertension Code(s): I10 - Essential (primary) hypertension Status: Chronic Assessment and Plan: Diltiazem Hold other antihypertensives (5) Ventral hernia: Qualifiers: Obstruction and gangrene presence: without obstruction or gangrene Qualified Code(s): K43.9 - Ventral hernia without obstruction or gangrene Code(s): K43.9 - Ventral hernia without obstruction or gangrene Status: Acute Assessment and Plan: Asymptomatic (6) Diabetes mellitus: Qualifiers: Diabetes mellitus type: type 2 Diabetes mellitus retirement insulin use: without retirement use Diabetes mellitus complication status: with hyperglycemia Qualified Code(s): E11.65 - Type 2 diabetes mellitus with hyperglycemia Code(s): E11.9 - Type 2 diabetes mellitus without complications Status: Chronic Assessment and Plan: Continue sitagliptin and rosiglitazone Supplement with SSI (7) Chest pain: Qualifiers: Chest pain type: unspecified Qualified Code(s): R07.9 - Chest pain, unspecified Code(s): R07.9 - Chest pain, unspecified Status: Acute Assessment and Plan: Was likely due to PSVT, pneumonia Hx negative coronary angiogram (8) Elevated liver enzymes: Code(s): R74.8 - Abnormal levels of other serum enzymes Status: Acute Assessment and Plan: Reactive vs hepatic steatosis vs combination Simlilar levels in past Heptatitis A, B, C negative (9) Hyponatremia: Code(s): E87.1 - Hypo-osmolality and hyponatremia Status: Acute Assessment and Plan: Likely due to HCTZ, decreased oral intake, possible SIADH due to pneumonia 01/10 FEU = 43.2% (not prerenal, so c/w SIADH), IVF d/c'ed 01/09 Na 129, 01/11 Na 133, 01/12 131, 01/13 132, 01/14 131 Subjective Date/time seen: 01/15/20 17:50 Interval history: Admitted 01/09 with SARS-CoV-2 pneumonia 01/14. Main c/o is fatigue. Mild aching. No cough. Shortness of breath with any activity. Tolerated diet. No GI or complaints. No abnormal bleeding. No chest pain. Exam Narrative: Exam Narrative: Blood pressure 124/80 pulse is 90 saturating 92% on room air temp 37.2, essentially afebrile last 24 hours HEENT:, PERRL, sclerae nonicteric, NECK: No JVD, adenopathy, or thyromegaly CHEST: Clear no wheezing or consolidation noted. HEART: NL S1/S2, regular, no murmur ABDOMEN: BS+, soft, nontender, reducible large ventral hernia EXTREMITIES: No, edema, NEUROLOGIC: CN intact and focal deficits.. PSYCH: Alert. Oriented to person, place, and time. Objective Data Vital Signs Vital Signs: Vital Signs - 24 hr 01/14/20 18:00
[2020-01-15 18:30] LABS: Glucose Point of Care 172 (65-105)
[2020-01-15] MEDS: ATORVASTATIN 40 MG TABLET PO (20:06)
[2020-01-15] MEDS: INSULIN GLARGINE (*BKC) 100 UNITS/ML 14 UNITS SUB-Q (20:25)
[2020-01-15 23:24] LABS: Glucose Point of Care 220 (65-105)
[2020-01-16] VITALS (20 sets, daily range): BP systolic 105–139; BP diastolic 65–83; PULSE 74–89; RESP 16–20; TEMP 37–38; O2SAT 88–94
[2020-01-16] MEDS: ACETAMINOPHEN 325 MG TABLET 650 MG PO ×4 (02:00→17:33)
[2020-01-16] MEDS: LORAZEPAM 0.5 MG TABLET PO (06:23)
[2020-01-16 06:32] LABS: D Dimer 0.79 ug/mL (<0.48)
[2020-01-16 06:46] LABS: Alanine Aminotransferase 71 U/L (4-35); Albumin Level 3.5 g/dL (3.5-5.1); Alkaline Phosphatase 104 U/L (38-126); Aspartate Amino Transferase 81 U/L (14-36); Bilirubin,Total 0.4 mg/dL (0.2-1.3); Blood Urea Nitrogen 7 mg/dL (7-17); Calcium 8.5 mg/dL (8.4-10.2); Carbon Dioxide 23 mmol/L (22-30); Chloride 100 mmol/L (98-107); Estimated CRCL calculation 88 ml/min; Estimated Glomerular Filt Rate > 60; Glucose 185 mg/dL (65-105); Lactate Dehydrogenase 984 U/L (313-618); Potassium 3.6 mmol/L (3.4-5.0); Sodium 131 mmol/L (137-145)
[2020-01-16 07:01] LABS: CRP 12.2 mg/dL (<1.0)
[2020-01-16] MEDS: PANTOPRAZOLE 40 MG TABLET PO ×2 (08:09→20:41)
[2020-01-16] MEDS: PIOGLITAZONE HCL 15 MG TAB PO (08:09)
[2020-01-16] MEDS: ENOXAPARIN 40 MG/0.4 ML SYRINGE SUB-Q (08:09)
[2020-01-16 09:17] LABS: Vitamin D 25 Hydroxy < 12.8 ng/mL
--- NOTE | 2020-01-16 10:20 | PM.PNCARD ---
Progress Note: A&P Assessment and Plan (1) Supraventricular tachycardia: Code(s): I47.1 - Supraventricular tachycardia Status: Acute Assessment and Plan: Continue diltiazem (2) Hypertension: Qualifiers: Hypertension type: unspecified Qualified Code(s): I10 - Essential (primary) hypertension Code(s): I10 - Essential (primary) hypertension Status: Chronic Assessment and Plan: Reasonably controlled. Will likely need to add back some her lisinopril/hydrochlorothiazide at some point (3) Hypokalemia: Code(s): E87.6 - Hypokalemia Status: Acute Assessment and Plan: Potassium chloride for local p.o. x1 (4) Pneumonia: Qualifiers: Laterality: left Lung location: lower lobe of lung Pneumonia type: due to unspecified organism Qualified Code(s): J18.9 - Pneumonia, unspecified organism Code(s): J18.9 - Pneumonia, unspecified organism Status: Acute Assessment and Plan: COVID positive. 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 inflammatory markers continued to worsen. Concerning for pending decompensation Continuous pulse oximeter will be placed Subjective Date/time seen: 01/16/20 10:20 Interval history: Admitted 01/09 with SARS-CoV-2 pneumonia and had some SVT treated with adenosine Date of service 01/16/2020: She short of breath doing almost anything at this point. Will she continues to be nauseated and had some vomiting. She spiked another fever last night. Inflammatory markers are generally worsening except for CRP. No chest pain Review of Systems Constitutional: Constitutional: Reports no additional constitutional complaints Eyes: Eyes: Reports no additional eye complaints ENT: Reports system reviewed and no additional complaints, except as documented Cardiovascular: Cardiovascular: Reports as per HPI, Reports palpitations and Reports dyspnea Respiratory: Respiratory: Reports as per HPI and Reports dyspnea Gastrointestinal: Gastrointestinal: Reports nausea Genitourinary: Genitourinary: Reports no additional female genitourinary complaints Musculoskeletal: Musculoskeletal: Reports no additional musculoskeletal complaints Integumentary/Breasts: Skin/Breast: Reports system reviewed and no additional complaints, except as docu Neurologic: Reports system reviewed and no additional complaints, except as documented Endocrine: Endocrine: Reports no additional endocrine complaints and Reports palpitations Hematologic/Lymphatic: Hematologic/Lymphatic: Reports no additional hematologic/lymphatic complaints Allergic/Immunologic: Allergic/Immunologic: Reports no additional allergic/immunologic complaints Exam Const: General: comfortable and no acute distress Eyes: Sclera: sclerae normal Resp: Effort & Inspection: other (Increased respiratory effort) Skin: General skin exam: normal color Neuro: Cognition (Neuro): normal cognition Extrem: General: edema Psych: Appearance: grossly normal Objective Data Vital Signs Vital Signs: Vital Signs - 24 hr 01/15/20 14:00 01/15/20 18:00 01/15/20 20:06 Temperature 37.2 C 37.4 C Pulse Rate 90 92 Respiratory Rate 20 18 Blood Pressure 124/79 117/76 Pulse Oximetry 92 94 94 01/15/20 22:00 01/16/20 01:56 01/16/20 02:00 Temperature 37.1 C 37.8 C H 37.8 C H Pulse Rate 86 86 Respiratory Rate 16 16 Blood Pressure 109/71 112/65 Pulse Oximetry 95 92 92 01/16/20 03:00 01/16/20 04:20 01/16/20 06:00 Temperature 38.0 C H 37.7 C H 37.2 C Pulse Rate 80 Respiratory Rate 20 Blood Pressure 139/83 Pulse Oximetry 94 01/16/20 08:11 Temperature 37.7 C H Pulse Rate Respiratory Rate Blood Pressure Pulse Oximetry Intake/Output Intake/Output: Intake & Output 01/13/20 01/14/20 01/15/20 01/16/20 23:59 23:59 23:59 23:59 Intake Total 1889 1989 1800 500 Output Total 2300 500 1400 570 Balance -410 1490 400 -70 Meds/Results Medications: Activ
[2020-01-16] MEDS: POTASSIUM CHLORIDE 20 MEQ TABLET 40 MEQ PO (11:07)
--- NOTE | 2020-01-16 11:44 | PC.NURSE ---
I reviewed patient status with Dr Cruz including lab work, previous CT scan done on saturation levels trending down from previous levels on on room air- currently at 92% on room air. I also advised him of Dr Kaur's concerns for decompensation. Will continue to monitor closely.
[2020-01-16 12:34] LABS: Glucose Point of Care 185 (65-105)
[2020-01-16] MEDS: ERGOCALCIFEROL 50,000 UNIT CAPSULE 50000 UNITS PO (12:55)
--- NOTE | 2020-01-16 15:37 | P.PNIM_ITS ---
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, symptom onset 01/09 * Inflammatory markers: D Dimer and ALT/AST to slightly rising; LDH, ferritin, CRP up a bit * Fever to 103 5/ PM * 01/13 Remains on R/A * Ceftriaxone day 7 and final day today * Azithromycin day 7 (2) Supraventricular tachycardia: Code(s): I47.1 - Supraventricular tachycardia Status: Acute Assessment and Plan: * Chronic, intermittent * Failed beta-lisa * Doing well on trial of diltiazem CD 180mg dialy * If that fails, consider trial of antiarrhythmic vs ablation (3) Elevated troponin: Code(s): R79.89 - Other specified abnormal findings of blood chemistry Status: Acute Assessment and Plan: * Likely due to PSVT * No ACS (4) Hypertension: Qualifiers: Hypertension type: unspecified Qualified Code(s): I10 - Essential (primary) hypertension Code(s): I10 - Essential (primary) hypertension Status: Chronic Assessment and Plan: * Diltiazem * Hold other antihypertensives for now with good bp (5) Ventral hernia: Qualifiers: Obstruction and gangrene presence: without obstruction or gangrene Qualified Code(s): K43.9 - Ventral hernia without obstruction or gangrene Code(s): K43.9 - Ventral hernia without obstruction or gangrene Status: Acute Assessment and Plan: * Asymptomatic (6) Diabetes mellitus: Qualifiers: Diabetes mellitus type: type 2 Diabetes mellitus manager trainee insulin use: without manager trainee use Diabetes mellitus complication status: with hyperglycemia Qualified Code(s): E11.65 - Type 2 diabetes mellitus with hyperglycemia Code(s): E11.9 - Type 2 diabetes mellitus without complications Status: Chronic Assessment and Plan: * Continue sitagliptin and rosiglitazone * Supplement with SSI (7) Chest pain: Qualifiers: Chest pain type: unspecified Qualified Code(s): R07.9 - Chest pain, unspecified Code(s): R07.9 - Chest pain, unspecified Status: Acute Assessment and Plan: * Was likely due to PSVT, pneumonia * Hx negative coronary angiogram (8) Elevated liver enzymes: Code(s): R74.8 - Abnormal levels of other serum enzymes Status: Acute Assessment and Plan: * Reactive vs hepatic steatosis vs combination * Simlilar levels in past * Heptatitis A, B, C negative (9) Hyponatremia: Code(s): E87.1 - Hypo-osmolality and hyponatremia Status: Acute Assessment and Plan: * Likely due to HCTZ, decreased oral intake, possible SIADH due to pneumonia * 01/10 FEU = 43.2% (not prerenal, so c/w SIADH), IVF d/c'ed * 01/09 Na 129, 01/11 Na 133, 01/12 131, 01/13 132, 01/14,01/15 131 Subjective Date/time seen: 01/16/20 15:37 Interval history: Admitted 01/09 with SARS-CoV-2 pneumonia 01/14. Main c/o is fatigue(more than sob). Mild aching. No cough. Shortness of breath with activity though. Tolerated diet. No GI or complaints. No abnormal bleeding. No chest pain. Exam Narrative: Exam Narrative: Bl
--- NOTE | 2020-01-16 15:37 | PM.IMPN ---
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, symptom onset 01/09 Inflammatory markers: D Dimer and ALT/AST to slightly rising; LDH, ferritin, CRP up a bit Fever to 103 5/17 PM 01/13 Remains on R/A Ceftriaxone day 7 and final day today Azithromycin day 7 (2) Supraventricular tachycardia: Code(s): I47.1 - Supraventricular tachycardia Status: Acute Assessment and Plan: Chronic, intermittent Failed beta-lisa Doing well on trial of diltiazem CD 180mg dialy If that fails, consider trial of antiarrhythmic vs ablation (3) Elevated troponin: Code(s): R79.89 - Other specified abnormal findings of blood chemistry Status: Acute Assessment and Plan: Likely due to PSVT No ACS (4) Hypertension: Qualifiers: Hypertension type: unspecified Qualified Code(s): I10 - Essential (primary) hypertension Code(s): I10 - Essential (primary) hypertension Status: Chronic Assessment and Plan: Diltiazem Hold other antihypertensives for now with good bp (5) Ventral hernia: Qualifiers: Obstruction and gangrene presence: without obstruction or gangrene Qualified Code(s): K43.9 - Ventral hernia without obstruction or gangrene Code(s): K43.9 - Ventral hernia without obstruction or gangrene Status: Acute Assessment and Plan: Asymptomatic (6) Diabetes mellitus: Qualifiers: Diabetes mellitus type: type 2 Diabetes mellitus group home insulin use: without group home use Diabetes mellitus complication status: with hyperglycemia Qualified Code(s): E11.65 - Type 2 diabetes mellitus with hyperglycemia Code(s): E11.9 - Type 2 diabetes mellitus without complications Status: Chronic Assessment and Plan: Continue sitagliptin and rosiglitazone Supplement with SSI (7) Chest pain: Qualifiers: Chest pain type: unspecified Qualified Code(s): R07.9 - Chest pain, unspecified Code(s): R07.9 - Chest pain, unspecified Status: Acute Assessment and Plan: Was likely due to PSVT, pneumonia Hx negative coronary angiogram (8) Elevated liver enzymes: Code(s): R74.8 - Abnormal levels of other serum enzymes Status: Acute Assessment and Plan: Reactive vs hepatic steatosis vs combination Simlilar levels in past Heptatitis A, B, C negative (9) Hyponatremia: Code(s): E87.1 - Hypo-osmolality and hyponatremia Status: Acute Assessment and Plan: Likely due to HCTZ, decreased oral intake, possible SIADH due to pneumonia 01/10 FEU = 43.2% (not prerenal, so c/w SIADH), IVF d/c'ed 01/09 Na 129, 01/11 Na 133, 01/12 131, 01/13 132, 01/14,01/15 131 Subjective Date/time seen: 01/16/20 15:37 Interval history: Admitted 01/09 with SARS-CoV-2 pneumonia 01/14. Main c/o is fatigue(more than sob). Mild aching. No cough. Shortness of breath with activity though. Tolerated diet. No GI or complaints. No abnormal bleeding. No chest pain. Exam Narrative: Exam Narrative: Blood pressure 108/72 pulse is 84 saturating 94% on room air temp 37.2, T Max 38 HEENT:, PERRL, sclerae nonicteric, NECK: No JVD, adenopathy, or thyromegaly CHEST: faint bibasilar crackles post bases HEART: NL S1/S2, regular, no murmur ABDOMEN: BS+, soft, nontender, reducible large ventral hernia EXTREMITIES: No, edema, NEUROLOGIC: CN intact and focal deficits.. PSYCH: Alert. Oriented to person, place, and time. Objective Data Vital Signs Vital Signs: Vital Signs - 24 hr
[2020-01-16 17:33] LABS: Glucose Point of Care 160 (65-105)
[2020-01-16] MEDS: AZITHROMYCIN 250 MG TABLET 500 MG PO (17:34)
[2020-01-16] MEDS: ATORVASTATIN 40 MG TABLET PO (20:41)
[2020-01-16] MEDS: INSULIN GLARGINE (*BKC) 100 UNITS/ML 14 UNITS SUB-Q (20:41)
[2020-01-16] MEDS: IBUPROFEN 400 MG TABLET PO (20:42)
[2020-01-16 21:23] LABS: Glucose Point of Care 165 (65-105)
[2020-01-17] VITALS (12 sets, daily range): BP systolic 108–120; BP diastolic 72–81; PULSE 66–79; RESP 16–24; TEMP 36.6–37.6; O2SAT 89–99
[2020-01-17 02:09] LABS: Glucose Point of Care 159 (65-105)
[2020-01-17 06:22] LABS: Basophils Percent Auto 0.6 % (0.2-1.2); Eosinophils Percent Auto 0.4 % (0-4.4); Hematocrit 44.1 % (37.0-47.0); Hemoglobin 14.3 g/dL (12.0-15.0); Immature Granulocyte Absolute 0.07 K/mm3 (0.00-0.031); Lymphocytes Absolute Auto 1.95 K/mm3 (0.9-3.2); Lymphocytes Percent Auto 28.9 % (18.3-44.2); Mean Corpuscular HGB Conc 32.4 g/dl (32-36); Mean Corpuscular Hemoglobin 26.1 pg (26-34); Mean Corpuscular Volume 80.5 fl (80-100); Monocytes Absolute Auto 0.4 K/mm3 (0.1-0.6); Monocytes Percent Auto 6.1 % (2.6-8.5); Neutrophils Absolute Auto 4.2 K/mm3 (1.3-6.7); Platelet Count Result 268 k/mm3 (150-375); Red Blood Count 5.48 M/mm3 (4.2-5.4); Red Cell Distribution Width 13.7 % (11.5-14.5); White Blood Count 6.7 K/mm3 (4.5-10.0)
[2020-01-17 06:40] LABS: Alanine Aminotransferase 103 U/L (4-35); Albumin Level 3.4 g/dL (3.5-5.1); Alkaline Phosphatase 114 U/L (38-126); Aspartate Amino Transferase 89 U/L (14-36); Bilirubin,Total 0.3 mg/dL (0.2-1.3); Blood Urea Nitrogen 9 mg/dL (7-17); Calcium 8.7 mg/dL (8.4-10.2); Carbon Dioxide 26 mmol/L (22-30); Chloride 100 mmol/L (98-107); Estimated CRCL calculation 65 ml/min; Estimated Glomerular Filt Rate > 60; Glucose 117 mg/dL (65-105); Lactate Dehydrogenase 903 U/L (313-618); Potassium 3.8 mmol/L (3.4-5.0); Sodium 134 mmol/L (137-145)
[2020-01-17 07:06] LABS: D Dimer 0.64 ug/mL (<0.48)
[2020-01-17] MEDS: ENOXAPARIN 40 MG/0.4 ML SYRINGE SUB-Q (07:40)
[2020-01-17] MEDS: PANTOPRAZOLE 40 MG TABLET PO ×2 (07:40→20:40)
[2020-01-17] MEDS: PIOGLITAZONE HCL 15 MG TAB PO (07:41)
[2020-01-17 08:21] LABS: Glucose Point of Care 121 (65-105)
--- NOTE | 2020-01-17 10:33 | PM.PNCARD ---
Progress Note: A&P Assessment and Plan (1) Supraventricular tachycardia: Code(s): I47.1 - Supraventricular tachycardia Status: Acute Assessment and Plan: Continue diltiazem (2) Hypertension: Qualifiers: Hypertension type: unspecified Qualified Code(s): I10 - Essential (primary) hypertension Code(s): I10 - Essential (primary) hypertension Status: Chronic Assessment and Plan: Reasonably controlled. Will likely need to add back some her lisinopril/hydrochlorothiazide at some point (3) Hypokalemia: Code(s): E87.6 - Hypokalemia Status: Acute Assessment and Plan: Stable (4) Pneumonia: Qualifiers: Laterality: left Lung location: lower lobe of lung Pneumonia type: due to unspecified organism Qualified Code(s): J18.9 - Pneumonia, unspecified organism Code(s): J18.9 - Pneumonia, unspecified organism Status: Acute Assessment and Plan: COVID positive. 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 Subjective Date/time seen: 01/17/20 10:33 Interval history: Admitted 01/09 with SARS-CoV-2 pneumonia and had some SVT treated with adenosine Date of service 01/17/2020: She short of breath doing almost anything at this point. Inflammatory markers such as CRP are slightly better today. No chest pain Review of Systems Constitutional: Constitutional: Reports no additional constitutional complaints Eyes: Eyes: Reports no additional eye complaints ENT: Reports system reviewed and no additional complaints, except as documented Cardiovascular: Cardiovascular: Reports as per HPI, Reports palpitations and Reports dyspnea Respiratory: Respiratory: Reports as per HPI and Reports dyspnea Gastrointestinal: Gastrointestinal: Reports nausea Genitourinary: Genitourinary: Reports no additional female genitourinary complaints Musculoskeletal: Musculoskeletal: Reports no additional musculoskeletal complaints Integumentary/Breasts: Skin/Breast: Reports system reviewed and no additional complaints, except as docu Neurologic: Reports system reviewed and no additional complaints, except as documented Endocrine: Endocrine: Reports no additional endocrine complaints and Reports palpitations Hematologic/Lymphatic: Hematologic/Lymphatic: Reports no additional hematologic/lymphatic complaints Allergic/Immunologic: Allergic/Immunologic: Reports no additional allergic/immunologic complaints Exam Const: General: comfortable and no acute distress HENMT: Mouth: Yes moist mucous membranes Eyes: Sclera: sclerae normal Pupils: Equal, round and reactive pupils present Neck: Neck: supple Thyroid: thyroid normal Other: Carotid upstrokes are normal no bruits Resp: Effort & Inspection: other (Increased respiratory effort) Auscultation: clear to auscultation bilaterally Cardio: Rate: regular rate Rhythm: regular rhythm Other: No murmur no gallop no rub GI: Auscultation: normal bowel sounds Skin: General skin exam: normal color Neuro: Cranial nerves: Yes Equal, round and reactive pupils present Cognition (Neuro): normal cognition Extrem: General: edema Psych: Appearance: grossly normal Objective Data Vital Signs Vital Signs: Vital Signs - 24 hr 01/16/20 11:10 01/16/20 12:00 01/16/20 12:55 Temperature 37.3 C 37.2 C Pulse Rate 89 Respiratory Rate 18 Blood Pressure Pulse Oximetry 91 01/16/20 14:00 01/16/20 17:24 01/16/20 17:33 Temperature 37.2 C 37.3 C 37.3 C Pulse Rate 85 82 Respiratory Rate 18 18 Blood Pressure 108/73 105/74 Pulse Oximetry 94 93 01/16/20 18:00 01/16/20 18:43 01/16/20 19:30 Temperature 37.4 C Pulse Rate 80 Respiratory Rate 18 Blood Pressure Pulse Oximetry 93 94 01/16/20 22:25 01/16/20 22:30 01/16/20 22:55 Temperature 37.0 C Pulse Rate 78 79 74 Respiratory Rate 20 18 Blood Pressure 114/71 Pulse Oximetry 90 88 L 91 01/17/20 01:00 01/17/20 02:51 01/17/20 04:00 Te
[2020-01-17] MEDS: AZITHROMYCIN 250 MG TABLET 500 MG PO (17:03)
--- NOTE | 2020-01-17 17:27 | P.PNIM_ITS ---
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 * If continues afebrile and if markers continue trending down could probably discharge 01/17 or 01/18 (2) Supraventricular tachycardia: Code(s): I47.1 - Supraventricular tachycardia Status: Acute Assessment and Plan: * Chronic, intermittent * Failed beta-lisa * Doing well on trial of diltiazem CD 180mg dialy * If that fails, consider trial of antiarrhythmic vs ablation (3) Elevated troponin: Code(s): R79.89 - Other specified abnormal findings of blood chemistry Status: Acute Assessment and Plan: * Likely due to PSVT * No ACS (4) Hypertension: Qualifiers: Hypertension type: unspecified Qualified Code(s): I10 - Essential (primary) hypertension Code(s): I10 - Essential (primary) hypertension Status: Chronic Assessment and Plan: * Diltiazem * Hold other antihypertensives for now with good bp (5) Ventral hernia: Qualifiers: Obstruction and gangrene presence: without obstruction or gangrene Qualified Code(s): K43.9 - Ventral hernia without obstruction or gangrene Code(s): K43.9 - Ventral hernia without obstruction or gangrene Status: Acute Assessment and Plan: * Asymptomatic (6) Diabetes mellitus: Qualifiers: Diabetes mellitus complication status: with hyperglycemia Diabetes mellitus rodent exterminator insulin use: without long-term use Diabetes mellitus type: type 2 Qualified Code(s): E11.65 - Type 2 diabetes mellitus with hyperglycemia Code(s): E11.9 - Type 2 diabetes mellitus without complications Status: Chronic Assessment and Plan: * Continue sitagliptin and rosiglitazone, lantus hs and decrease to 10 U * stop sliding scale since BS always good (7) Chest pain: Qualifiers: Chest pain type: unspecified Qualified Code(s): R07.9 - Chest pain, unspecified Code(s): R07.9 - Chest pain, unspecified Status: Acute Assessment and Plan: * Was likely due to PSVT, pneumonia * Hx negative coronary angiogram (8) Elevated liver enzymes: Code(s): R74.8 - Abnormal levels of other serum enzymes Status: Acute Assessment and Plan: * Reactive vs hepatic steatosis vs combination * Simlilar levels in past * Heptatitis A, B, C negative (9) Hyponatremia: Code(s): E87.1 - Hypo-osmolality and hyponatremia Status: Acute Assessment and Plan: * Likely due to HCTZ, decreased oral intake, possible SIADH due to pneumonia * 01/10 FEU = 43.2% (not prerenal, so c/w SIADH), IVF d/c'ed * 01/09 Na 129, 01/11 Na 133, 01/12 131, 01/13 132, 01/14,01/15 131 * 01/16 134 Subjective Date/time seen: 01/17/20 17:27 Interval history: Admitted 01/09 with SARS-CoV-2 pneumonia 01/16. Main c/o is fatigue(more than sob). Mild aching. No cough. Shortness of
--- NOTE | 2020-01-17 17:27 | PM.IMPN ---
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 If continues afebrile and if markers continue trending down could probably discharge 01/17 or 01/18 (2) Supraventricular tachycardia: Code(s): I47.1 - Supraventricular tachycardia Status: Acute Assessment and Plan: Chronic, intermittent Failed beta-lisa Doing well on trial of diltiazem CD 180mg dialy If that fails, consider trial of antiarrhythmic vs ablation (3) Elevated troponin: Code(s): R79.89 - Other specified abnormal findings of blood chemistry Status: Acute Assessment and Plan: Likely due to PSVT No ACS (4) Hypertension: Qualifiers: Hypertension type: unspecified Qualified Code(s): I10 - Essential (primary) hypertension Code(s): I10 - Essential (primary) hypertension Status: Chronic Assessment and Plan: Diltiazem Hold other antihypertensives for now with good bp (5) Ventral hernia: Qualifiers: Obstruction and gangrene presence: without obstruction or gangrene Qualified Code(s): K43.9 - Ventral hernia without obstruction or gangrene Code(s): K43.9 - Ventral hernia without obstruction or gangrene Status: Acute Assessment and Plan: Asymptomatic (6) Diabetes mellitus: Qualifiers: Diabetes mellitus complication status: with hyperglycemia Diabetes mellitus residential insulin use: without residential use Diabetes mellitus type: type 2 Qualified Code(s): E11.65 - Type 2 diabetes mellitus with hyperglycemia Code(s): E11.9 - Type 2 diabetes mellitus without complications Status: Chronic Assessment and Plan: Continue sitagliptin and rosiglitazone, lantus hs and decrease to 10 U stop sliding scale since BS always good (7) Chest pain: Qualifiers: Chest pain type: unspecified Qualified Code(s): R07.9 - Chest pain, unspecified Code(s): R07.9 - Chest pain, unspecified Status: Acute Assessment and Plan: Was likely due to PSVT, pneumonia Hx negative coronary angiogram (8) Elevated liver enzymes: Code(s): R74.8 - Abnormal levels of other serum enzymes Status: Acute Assessment and Plan: Reactive vs hepatic steatosis vs combination Simlilar levels in past Heptatitis A, B, C negative (9) Hyponatremia: Code(s): E87.1 - Hypo-osmolality and hyponatremia Status: Acute Assessment and Plan: Likely due to HCTZ, decreased oral intake, possible SIADH due to pneumonia 01/10 FEU = 43.2% (not prerenal, so c/w SIADH), IVF d/c'ed 01/09 Na 129, 01/11 Na 133, 01/12 131, 01/13 132, 01/14,01/15 131 01/16 134 Subjective Date/time seen: 01/17/20 17:27 Interval history: Admitted 01/09 with SARS-CoV-2 pneumonia 01/16. Main c/o is fatigue(more than sob). Mild aching. No cough. Shortness of breath with activity though. Ate a little more today. No GI or complaints. No abnormal bleeding. No chest pain. Feels slightly better than yesterday Exam Narrative: Exam Narrative: Blood pressure 116/80 pulse is 76 saturating 96% on room air temp 36.9, T Max 37.3 HEENT:, PERRL, sclerae nonicteric, NECK: No JVD, adenopathy, or thyromegaly CHEST: faint bibasilar crackles post bases HEART: NL S1/S2, regular, no murmur ABDOMEN: BS+, soft, nontender, reducib
[2020-01-17] MEDS: IBUPROFEN 400 MG TABLET PO (20:40)
[2020-01-17] MEDS: ATORVASTATIN 40 MG TABLET PO (20:40)
[2020-01-17] MEDS: INSULIN GLARGINE (*BKC) 100 UNITS/ML 10 UNITS SUB-Q (21:08)
[2020-01-17 21:12] LABS: Glucose Point of Care 115 (65-105)
[2020-01-18 02:00] VITALS: BP 115/82; PULSE 70; RESP 20; TEMP 36.8; O2SAT 98
[2020-01-18 06:00] VITALS: BP 121/74; PULSE 66; RESP 24; TEMP 36.8; O2SAT 97
[2020-01-18 06:38] LABS: D Dimer 1.06 ug/mL (<0.48)
[2020-01-18 06:59] LABS: CRP 6.3 mg/dL (<1.0); Lactate Dehydrogenase 773 U/L (313-618)
[2020-01-18] MEDS: ENOXAPARIN 40 MG/0.4 ML SYRINGE SUB-Q (08:26)
[2020-01-18] MEDS: PIOGLITAZONE HCL 15 MG TAB PO (08:27)
[2020-01-18] MEDS: PANTOPRAZOLE 40 MG TABLET PO (08:27)
[2020-01-18 10:00] VITALS: BP 115/82; PULSE 73; RESP 20; TEMP 36.8; O2SAT 99
--- NOTE | 2020-01-18 10:25 | PM.PNCARD ---
Progress Note: A&P Assessment and Plan (1) Supraventricular tachycardia: Code(s): I47.1 - Supraventricular tachycardia Status: Acute Assessment and Plan: Continue diltiazem (2) Hypertension: Qualifiers: Hypertension type: unspecified Qualified Code(s): I10 - Essential (primary) hypertension Code(s): I10 - Essential (primary) hypertension Status: Chronic Assessment and Plan: Reasonably controlled. Will likely need to add back some her lisinopril/hydrochlorothiazide at some point (3) Hypokalemia: Code(s): E87.6 - Hypokalemia Status: Acute Assessment and Plan: Stable (4) Pneumonia: Qualifiers: Laterality: left Lung location: lower lobe of lung Pneumonia type: due to unspecified organism Qualified Code(s): J18.9 - Pneumonia, unspecified organism Code(s): J18.9 - Pneumonia, unspecified organism Status: Acute Assessment and Plan: COVID positive. 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 Subjective Date/time seen: 01/18/20 10:25 Interval history: Admitted 01/09 with SARS-CoV-2 pneumonia and had some SVT treated with adenosine Date of service 01/18/2020: She feels better today. She still short of breath but is able to do more. No chest pain. Mild swelling Review of Systems Constitutional: Constitutional: Reports no additional constitutional complaints Eyes: Eyes: Reports no additional eye complaints ENT: Reports system reviewed and no additional complaints, except as documented Cardiovascular: Cardiovascular: Reports as per HPI, Reports palpitations and Reports dyspnea Respiratory: Respiratory: Reports as per HPI and Reports dyspnea Gastrointestinal: Gastrointestinal: Reports nausea Genitourinary: Genitourinary: Reports no additional female genitourinary complaints Musculoskeletal: Musculoskeletal: Reports no additional musculoskeletal complaints Integumentary/Breasts: Skin/Breast: Reports system reviewed and no additional complaints, except as docu Neurologic: Reports system reviewed and no additional complaints, except as documented Endocrine: Endocrine: Reports no additional endocrine complaints and Reports palpitations Hematologic/Lymphatic: Hematologic/Lymphatic: Reports no additional hematologic/lymphatic complaints Allergic/Immunologic: Allergic/Immunologic: Reports no additional allergic/immunologic complaints Exam Const: General: comfortable and no acute distress HENMT: Mouth: Yes moist mucous membranes Eyes: Sclera: sclerae normal Neck: Neck: supple Resp: Effort & Inspection: other (Increased respiratory effort) Cardio: Rate: regular rate Rhythm: regular rhythm Skin: General skin exam: normal color Neuro: Cognition (Neuro): normal cognition Extrem: General: edema Psych: Appearance: grossly normal Objective Data Vital Signs Vital Signs: Vital Signs - 24 hr 01/17/20 10:55 01/17/20 14:29 01/17/20 18:00 Temperature 36.9 C 37.1 C Pulse Rate 76 78 Respiratory Rate 20 20 Blood Pressure 116/81 118/78 Pulse Oximetry 94 96 96 01/17/20 22:00 01/17/20 22:45 01/18/20 02:00 Temperature 37.5 C 37.6 C 36.8 C Pulse Rate 79 73 70 Respiratory Rate 24 H 20 Blood Pressure 108/72 115/82 Pulse Oximetry 97 89 L 98 01/18/20 06:00 Temperature 36.8 C Pulse Rate 66 Respiratory Rate 24 H Blood Pressure 121/74 Pulse Oximetry 97 Intake/Output Intake/Output: Intake & Output 01/15/20 01/16/20 01/17/20 01/18/20 23:59 23:59 23:59 23:59 Intake Total 1800 1500 1425 1190 Output Total 1400 1870 1520 1100 Balance 400 -370 -95 90 Meds/Results Medications: Active Medications Generic Name Dose Route Start Last Admin Trade Name Freq PRN Reason Stop Dose Admin Acetaminophen 650 mg 01/11/20 04:28 01/16/20 17:33 Tylenol Tablet PO 650 mg Q4H PRN Administration Mild Pain (1-3) or Fever Hydrocodone Bitart/Acetaminophen 1 tab 01/11/20 04:28 [place] 5-325
[2020-01-18 12:00] VITALS: PULSE 70; RESP 18; O2SAT 98
--- NOTE | 2020-01-18 12:49 | PCNWS ---
Weekly nutritional screen. Patient is tolerating current heart healthy diet. No weight loss reported. Her family has been bringing snacks in for her. She had coffee and a banana for breakfast. No nutritional needs at this time.
--- NOTE | 2020-01-18 16:13 | PM.DS ---
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 Today pt sats are good pt feels better no cough not sob mild aches and pains, eating good discussed with patient that she needs to stay of work another 14 days (2) Supraventricular tachycardia: Code(s): I47.1 - Supraventricular tachycardia Status: Acute Assessment and Plan: Chronic, intermittent Continue diltiazem cd follow up cardiology on discharge (3) Elevated troponin: Code(s): R79.89 - Other specified abnormal findings of blood chemistry Status: Acute Assessment and Plan: No ACS (4) Hypertension: Qualifiers: Hypertension type: unspecified Qualified Code(s): I10 - Essential (primary) hypertension Code(s): I10 - Essential (primary) hypertension Status: Chronic Assessment and Plan: Diltiazem started (5) Ventral hernia: Qualifiers: Obstruction and gangrene presence: without obstruction or gangrene Qualified Code(s): K43.9 - Ventral hernia without obstruction or gangrene Code(s): K43.9 - Ventral hernia without obstruction or gangrene Status: Acute Assessment and Plan: Asymptomatic (6) Diabetes mellitus: Qualifiers: Diabetes mellitus complication status: with hyperglycemia Diabetes mellitus termination clerk insulin use: without termination clerk use Diabetes mellitus type: type 2 Qualified Code(s): E11.65 - Type 2 diabetes mellitus with hyperglycemia Code(s): E11.9 - Type 2 diabetes mellitus without complications Status: Chronic Assessment and Plan: Continue sitagliptin and rosiglitazone Supplement with SSI Given lantus solostar pen on discharge, adviced better management of her DM. Pt to follow up with the DM educator on discharge. (7) Chest pain: Qualifiers: Chest pain type: unspecified Qualified Code(s): R07.9 - Chest pain, unspecified Code(s): R07.9 - Chest pain, unspecified Status: Acute Assessment and Plan: Was likely due to PSVT or pneumonia Hx negative coronary angiogram in the past (8) Elevated liver enzymes: Code(s): R74.8 - Abnormal levels of other serum enzymes Status: Acute Assessment and Plan: Reactive vs hepatic steatosis vs combination (9) Hyponatremia: Code(s): E87.1 - Hypo-osmolality and hyponatremia Status: Acute Assessment and Plan: Possible SIADH due to pneumonia 1 DS: Summary Time Spent with Patient Time attestation: Total time spent providing and/or coordinating discharge services:40 minutes on day of dischrage Exam Narrative: Exam Narrative: Vitals are stable pulse 70, RR 18, sats 98% on RA Const: General: cooperative, healthy appearing and comfortable DS: Data Data Completed and Pending Labs on day of discharge: Labs from last 24 hours 01/18/20 01/18/20 01/18/20 06:18 06:18 06:18 D-Dimer 1.06 H POC Capillary Glucose Ferritin 1170.00 H Lactate Dehydrogenase 773 H C-Reactive Protein 6.3 H 01/17/20 01/17/20 20:47 05:43 D-Dimer POC Capillary Glucose 115 H Ferritin 1220.00 H Lactate Dehydrogenase C-Reactive Protein Discharge Plan Discharge Attending physician on discharge: Carla Aguero Consulting providers: Mary Cervantesarging Sarah
== END 2020-01-18 17:03 | disposition home or self-care (01) | DRG 177 ==
LOC: ANHED 01-11 04:55 → ANHICU 01-11 05:21 → ANH3MEDSUR 01-14 09:44 → ANHICU 01-22 14:27
PROVIDERS: Internal Medicine; Admitting Provider Internal Medicine; Emergency Provider Emergency Medicine; PCP Internal Medicine; Visit Provider Family Medicine
DX: U07.1 COVID-19 (principal); J12.89 Other viral pneumonia; I47.1 Supraventricular tachycardia; E87.1 Hypo-osmolality and hyponatremia; I10 Essential (primary) hypertension; K43.9 Ventral hernia without obstruction or gangrene; K21.0 Gastro-esophageal reflux disease with esophagitis; E78.5 Hyperlipidemia, unspecified; I25.2 Old myocardial infarction; Z86.73 Personal history of transient ischemic attack (TIA), and cerebral infarction without residual deficits; E87.6 Hypokalemia; R79.89 Other specified abnormal findings of blood chemistry; E11.65 Type 2 diabetes mellitus with hyperglycemia; R74.8 Abnormal levels of other serum enzymes
CPT/HCPCS: 36415; 71045; 71275; 80048; 80053; 80076; 82306; 82570; 82728; 83540; 83550; 83605; 83615; 83880; 84145; 84484; 84540; 85025; 85027; 85380; 85610; 85730; 86140; 86709; 86803; 87040; 87340; 87635; 93005; 96361; 99285; A9270; G0378; J0456; J0696; J1650; J1815; J2270; J2550; J7030; Q9967; U0003

== ENCOUNTER 2021-05-07 19:16 | Emergency (ER) | payer MEDICARE, SELFPAY ==
--- NOTE | 2021-05-07 19:18 | ECG_ITS ---
Measurements Intervals Bruce Rate: 93 P: 27 FL: 131 QRS: -7 QRSD: 93 T: 34 QT: 364 QTc: 453 Interpretive Statements SINUS RHYTHM VENTRICULAR COUPLET, ATRIAL PREMATURE COMPLEX, AND FREQUENT VENTRICULAR PREMATURE COMPLEXES POSSIBLE LEFT ATRIAL ENLARGEMENT BASELINE ARTIFACT- II, III, AVR, AVF, V1, V3-V6 ABNORMAL ECG Electronically Signed On 05-07-2021 20:21:22 CDT by Jose Spears D.O.
[2021-05-07 19:32] VITALS: BP 148/84; PULSE 89; RESP 18; O2SAT 98
--- NOTE | 2021-05-07 19:35 | PC.NURSE ---
IV attempt to right AC, pt states her veins have been bad since I was in here two months for COVID . IV successful, unable to thread catheter, attempt to draw blood and pt hyperventilates and left arm stiff and unable to relax. Pt requests to use her left arm because they're better since COVID . Note two good veins to left hand, pt states there's nothing there. 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 Showed pt that two good veins are there and will attempt as do not feel one in the AC, states you're never going to get it . IV initiated, pt screaming, hyperventilating it's infiltrated! , good blood return and when flushes pt screams and pulls hand away, attempting to hold pressure, 2x2 placed. Pt's behavior escalates, scoots down to end of bed, undressing and pulling cords off. Curtain pulled for pt's privacy, states I don't care about no damn curtain . Attempt to calm pt, explained I will not attempt another IV, but that we need to draw blood for a troponin, states NO, NO, I'm gettin OUT , pt leaning over desk near chairs in corner of room, continues to sob loudly. arrives, states what are you doing, this is my ! . Explained that I was attempting an IV and that she's refusing further . states that's how she is . Attempted to offer pt help and emotional support and pt pulls away and ignores attempts. human resources recruiter made aware. Pt continues to sob loudly.
--- NOTE | 2021-05-07 19:40 | PC.NURSE ---
Charge Nurse Peyton Taveras into room to speak with patient.
--- NOTE | 2021-05-07 19:43 | PC.NURSE ---
I went in to speak with patient, patient upset and crying, saying she is going to leave. I offered patient a different room and she stated I have to get out of here .
== END 2021-05-07 19:46 | disposition left against medical advice (07) ==
PROVIDERS: Emergency Provider Emergency Medicine
DX: R07.2 Precordial pain (principal)
CPT/HCPCS: 93005; 99199